=== PATIENT | female | born 1990 | race American Indian/Alaskan Native ===

== ENCOUNTER 2018-12-16 20:12 | Inpatient (IN) | payer MEDICAID ==
[2018-12-16] MEDS ORDERED: DOCUSATE SODIUM 100 MG CAP PO PRN (21:18)
[2018-12-16] MEDS ORDERED: ZOLPIDEM 10 MG TAB PO PRN (21:18)
[2018-12-16] MEDS ORDERED: DEXTROSE 50% IN WATER (25GM) 50 ML SYRINGE IV PRN (21:32)
--- NOTE | 2018-12-16 21:42 | History and Physical Report ---
History of Present Illness Date of examination: 12/16/18 Date of admission: 12/16/18 Chief complaint: My blood sugar is high History of present illness: Pt is a 28 year old who presents for inpatient management of uncontrolled diabetes. Pt is 34.5 weeks and is scheduled for a at 37 weeks, however, she may need to be delivered sooner than that due to risk to infant from diabetes. 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 Family/Genetic History: diabetes Social history: single - Obstetrical History Expected Date of Delivery: 01/23/19 Actual Gestation: 34 Week(s) 4 Day(s) : 2 Number of Living Children: 1 Medications and Allergies Allergies Allergy/AdvReac Type Severity Reaction Status Date / Time clindamycin Allergy Swelling Unverified 12/16/18 20:15 doxycycline Allergy Swelling Unverified 12/16/18 20:15 Penicillins AdvReac Swelling Unverified 12/16/18 20:15 Active Meds: Active Medications Betamethasone Acet/Betameth SodPhos (Celestone Soluspan) 12 mg IM Q24HR BRE Stop: 12/18/18 10:01 Dextrose (D50w (25gm) Syringe) 50 ml IV Q30MIN PRN PRN Reason: Hypoglycemia Lactated Ringer's (Lactated Ringers) 1,000 mls @ 75 mls/hr IV DIRECT BRE Insulin Human Regular (Humulin R) 0 units SUB-Q QHS BRE; Protocol Insulin Human Regular (Humulin R) 0 units SUB-Q AC BRE; Protocol Multivitamins/Iron/Calcium ( Vitamin) 1 each PO QDAY BRE Simethicone (Mylicon) 80 mg PO Q6H PRN PRN Reason: Gas pain Zolpidem Tartrate (Ambien) 10 mg PO ONCE PRN PRN Reason: Sleep Review of Systems All systems: negative Constitutional: fatigue Gastrointestinal: other ( movement) Rectal Exam: deferred - Vital Signs Vital signs: Vital Signs Pulse Pulse Ox 109 H 99 12/16/18 20:45 12/16/18 20:45 Temp Pulse Resp BP Pulse Ox 98.3 F 105 H 18 142/80 98 12/16/18 21:00 12/16/18 21:35 12/16/18 21:00 12/16/18 21:00 12/16/18 21:35 - Physical Exam Breasts: Cardiovascular: Regular rate, Normal S1, Normal S2 Lungs: Positive: Clear to auscultation, Normal air movement Abdomen: Positive: normal appearance, soft, normal bowel sounds. Negative: distention, tenderness Genitourinary (Female): Positive: normal external genitalia, normal perenium Vulva: both: normal Vagina: Positive: normal moisture. Negative: discharge Cervix: Negative: lesion, discharge Uterus: Positive: normal size, normal contour Adnexa: both: normal Anus/Rectum: Positive: normal perianal skin, heme negative. Negative: rectal mass, hemorrhoids Extremities: Deep Tendon Reflex Grade: Normal +2 - Obstetrical FHR: auscultation normal Results All other labs normal. Assessment and Plan Patient here for admission and inpatient management of uncontrolled diabetes management. Will add steroids for lung maturity. Consult Dr Hester
[2018-12-16] MEDS ORDERED: INSULIN REGULAR, HUMAN 100 UNITS/1 ML SUB-Q SCH (22:00)
[2018-12-16 22:22] LABS: Basophils # (Auto) 0.1 K/mm3 (0.0-0.1); Basophils % (Auto) 0.7 % (0.0-1.8); Eosinophils # (Auto) 0.1 K/mm3 (0.0-0.4); Hematocrit 36.1 % (30.3-42.9); Lymphocytes % (Auto) 24.5 % (13.4-35.0); Mean Corpuscular HGB Conc 33 % (30-34); Mean Corpuscular Volume 83 fl (79-97); Monocytes # (Auto) 0.6 K/mm3 (0.0-0.8); Monocytes % (Auto) 7.9 % (0.0-7.3); Platelet Count 396 K/mm3 (140-440); Red Blood Count 4.34 M/mm3 (3.65-5.03); Red Cell Distribution Width 14.3 % (13.2-15.2)
[2018-12-16] MEDS: BETAMET ACET/BETAMET NA PH 6 MG/ML INJ 5 ML MDV IM SCH (22:31)
[2018-12-16] MEDS: SIMETHICONE 80 MG CHEW TAB PO PRN (22:45)
[2018-12-16 22:47] LABS: BUN/Creatinine Ratio 13; Blood Urea Nitrogen 5 mg/dL (7-17); Calcium 9.1 mg/dL (8.4-10.2); Hemolysis Index 67
[2018-12-16] MEDS: ACETAMINOPHEN 325 MG TAB PO PRN (22:52)
[2018-12-16] MEDS ORDERED: SODIUM CHLORIDE 0.9% 1000 ML 1,000 ML IV SCH (23:00)
--- NOTE | 2018-12-16 23:28 | Ultrasound Report ---
ULTRASOUND OBSTETRIC INDICATION / CLINICAL INFORMATION: uncontrolled diabetes. Clinical Gestational Age (GA): 34/5 (weeks/days) TECHNIQUE: Transabdominal. COMPARISON: None available. FINDINGS: There is a single intrauterine . Biparietal Diameter = 8.4 cm = 33/5 (weeks/days) Head Circumference = 31.1 cm = 34/5 (weeks/days) Abdominal Circumference = 34.2 cm = 38/1 (weeks/days) Femur Length = 6.8 cm = 34/6 (weeks/days) Average Ultrasound Age (AUA) = 34/3 (weeks/days) Heart Rate: 156 beats per minute. Estimated Weight in grams (if calculated): 2937 Estimated Weight Growth Percentile (if calculated): 90th Position: cephalic. Cervix: closed. Length in cm (if measured): 5.2 Placenta: posterior and free of the os. No sonographic evidence for placental abruption. Amniotic Fluid Volume: increased Amniotic Fluid Index (ANYI) in cm (if calculated): 29.0. Maternal Adnexa: Not well visualized. IMPRESSION: 1. Single, living intrauterine with estimated sonographic age of 34/3 (weeks/days). 2. Increased amniotic fluid index of 29.0 cm. Signer Name: Bernabe Bridges MD Signed: 12/16/2018 11:24 PM Workstation Name: [id number]
[2018-12-17] MEDS: ACETAMINOPHEN 325 MG TAB PO PRN (05:15)
[2018-12-17] MEDS ORDERED: ONDANSETRON 4 MG/2 ML INJ IV PRN (06:47)
[2018-12-17] MEDS: PRENATAL VIT27-FE FUMARATE-FOLIC ACID VIT TAB PO SCH (09:07)
[2018-12-17] MEDS: INSULIN REGULAR, HUMAN 100 UNITS/1 ML SUB-Q SCH ×2 (09:08→11:52)
[2018-12-17] MEDS: diphenhydrAMINE 25 MG CAP PO PRN ×3 (09:10→23:49)
[2018-12-17] MEDS: LACTATED RINGERS 1,000 ML IV SCH (09:19)
[2018-12-17] MEDS: SIMETHICONE 80 MG CHEW TAB PO PRN (11:53)
[2018-12-17] MEDS ORDERED: INSULIN REGULAR, HUMAN 100 UNITS/1 ML SUB-Q ONE (16:54)
[2018-12-17] MEDS ORDERED: FAMOTIDINE 20 MG TAB ONE (17:45)
[2018-12-17] MEDS: FAMOTIDINE 20 MG TAB PO SCH (17:56)
--- NOTE | 2018-12-17 22:13 | Progress Note ---
Assessment and Plan HD 2 for this noncompliant diabetic patient here for inpatient management. Pt is soon to be 35 weeks and ok receive second steroid dose on today. Will await input from [facility] regarding timing of delivery Subjective - Subjective Date of service: 12/17/18 Interval history: Pt is a 28 year old who presents for inpatient management of uncontrolled diabetes. Pt is 34.5 weeks and is scheduled for a at 37 weeks, however, she may need to be delivered sooner than that due to risk to infant from diabetes. Pt continues to be noncompliant even in hospital and is requesting outside food and juice which is not part of the ADA diet Patient reports: movement normal Objective - Vital Signs Vital Signs: Vital Signs - 12hr 12/17/18 12/17/18 12/17/18 11:29 11:30 16:10 Temperature 98.4 F Pulse Rate 108 H 96 H 113 H Respiratory 20 Rate Blood Pressure 127/78 126/63 Blood Pressure 127/78 [Left] O2 Sat by Pulse 98 96 Oximetry 12/17/18 12/17/18 12/17/18 16:26 17:51 17:56 Temperature 98.5 F Pulse Rate 114 H 108 H 109 H Respiratory 20 Rate Blood Pressure Blood Pressure 126/63 [Left] O2 Sat by Pulse 98 99 99 Oximetry 12/17/18 12/17/18 18:01 19:46 Temperature Pulse Rate 111 H 109 H Respiratory Rate Blood Pressure 133/81 Blood Pressure [Left] O2 Sat by Pulse 99 Oximetry - Exam Breasts: deferred Uterus: Present: normal FHR: auscultation normal Uterine Contraction Pattern: Irregular - Labs Labs: Abnormal Labs 12/16/18 12/16/18 12/16/18 21:54 22:02 22:02 [place] % (Auto) 7.9 H Sodium Carbon Dioxide BUN Creatinine Glucose POC Glucose 349 H Hemoglobin A1c 12.5 H Ur Total Protein 24 Hr Urine Total Protein 12/16/18 12/17/18 12/17/18 22:02 03:15 06:51 [place] % (Auto) Sodium 132 L Carbon Dioxide 17 L BUN 5 L Creatinine 0.4 L Glucose 400 H POC Glucose 277 H 276 H Hemoglobin A1c Ur Total Protein 24 Hr Urine Total Protein 12/17/18 12/17/18 12/17/18 11:35 16:28 20:30 [place] % (Auto) Sodium Carbon Dioxide BUN Creatinine Glucose POC Glucose 210 H 301 H Hemoglobin A1c Ur Total Protein 24 Hr 260.00 H Urine Total Protein 20 H Laboratory Results - last 24 hr 12/16/18 12/16/18 12/16/18 22:00 22:02 22:02 WBC 8.2 RBC 4.34 Hgb 12.0 Hct 36.1 MCV 83 MCH 28 MCHC 33 RDW 14.3 Plt Count 396 Lymph % (Auto) 24.5 [place] % (Auto) 7.9 H Eos % (Auto) 1.0 Baso % (Auto) 0.7 Lymph # 2.0 [place] # 0.6 Eos # 0.1 Baso # 0.1 Seg Neutrophils % 65.9 Seg Neutrophils # 5.4 Sodium Potassium Chloride Carbon Dioxide Anion Gap BUN Creatinine Estimated GFR BUN/Creatinine Ratio Glucose POC Glucose Hemoglobin A1c 12.5 H Calcium Urine Total Volume Ur Total Protein 24 Hr Urine Total Protein Blood Type O POSITIVE Antibody Screen Negative 12/16/18 12/17/18 12/17/18 22:02 03:15 06:51 WBC RBC Hgb Hct MCV MCH MCHC RDW Plt Count Lymph % (Auto) [place] % (Auto) Eos % (Auto) Baso % (Auto) Lymph # [place] # Eos # Baso # Seg Neutrophils % Seg Neutrophils # Sodium 132 L Potassium 4.1 Chloride 100.2 Carbon Dioxide 17 L Anion Gap 19 BUN 5 L Creatinine 0.4 L Estimated GFR > 60 BUN/Creatinine Ratio 13 Glucose 400 H POC Glucose 277 H 276 H Hemoglobin A1c Calcium 9.1 Urine Total Volume Ur Total Protein 24 Hr Urine Total Protein Blood Type Antibody Screen 12/17/18 12/17/18 12/17/18 11:35 16:28 20:30 WBC RBC Hgb Hct MCV MCH MCHC RDW Plt Count Lymph % (Auto) [place] % (Auto) Eos % (Auto) Baso % (Auto) Lymph # [place] # Eos # Baso # Seg Neutrophils % Seg Neutrophils # Sodium Potassium Chloride Carbon Dioxide Anion Gap BUN Creatinine Estimated GFR BUN/Creatinine Ratio Glucose POC Glucose 210 H 301 H Hemoglobin A1c Calcium Urine Total Volume 1300 Ur Total Protein 24 Hr 260.00 H Urine Total Protein 20 H Blood Type Antibody Screen
[2018-12-17] MEDS: BETAMET ACET/BETAMET NA PH 6 MG/ML INJ 5 ML MDV IM SCH (22:51)
[2018-12-17] MEDS ORDERED: INSULIN GLARGINE 100 UNITS/ML SUB-Q SCH (23:45)
[2018-12-18] MEDS: INSULIN REGULAR, HUMAN 100 UNITS/1 ML SUB-Q SCH ×5 (00:24→22:19)
[2018-12-18 01:09] LABS: BUN/Creatinine Ratio 20; Blood Urea Nitrogen 10 mg/dL (7-17); Calcium 8.7 mg/dL (8.4-10.2); Hemolysis Index 15
[2018-12-18 01:10] LABS: Alanine Aminotransferase < 5 units/L (7-56)
[2018-12-18] MEDS: LACTATED RINGERS 1,000 ML IV SCH (01:42)
[2018-12-18 07:01] LABS: Amphetamine Screen,Urine PRESUMPTIVE NEGATIVE; Benzodiazepines Screen,Urine PRESUMPTIVE NEGATIVE; Cannabinoid Screen,Urine PRESUMPTIVE NEGATIVE; Cocaine Screen,Urine PRESUMPTIVE NEGATIVE; Methadone Screen,Urine PRESUMPTIVE NEGATIVE; Opiate Screen,Urine PRESUMPTIVE NEGATIVE
[2018-12-18] MEDS ORDERED: INSULIN REGULAR, HUMAN 100 UNITS/1 ML SUB-Q SCH (07:30)
[2018-12-18] MEDS ORDERED: INSULIN GLARGINE 100 UNITS/ML SUB-Q SCH ×2 (08:00→22:00)
[2018-12-18] MEDS: FAMOTIDINE 20 MG TAB PO SCH ×2 (08:00→22:00)
[2018-12-18] MEDS: PRENATAL VIT27-FE FUMARATE-FOLIC ACID VIT TAB PO SCH ×2 (10:00→12:16)
--- NOTE | 2018-12-18 12:13 | Ultrasound Report ---
ULTRASOUND BIOPHYSICAL PROFILE INDICATION: non compliant DM, well being. COMPARISON: None available. FINDINGS: heart rate is 136 beats per minute. breathing movement = 2 Gross body movement = 2 tone = 2 Qualitative amniotic fluid volume = 2 IMPRESSION: biophysical profile = 09/17 Signer Name: Jose L Brody Jr, MD Signed: 12/18/2018 12:09 PM Workstation Name: [id number]
[2018-12-18] MEDS: diphenhydrAMINE 25 MG CAP PO PRN ×2 (13:03→22:20)
--- NOTE | 2018-12-18 14:14 | Consultation ---
History of Present Illness Consult date: 12/18/18 History of present illness: HPI Pt is a 28 year old now 35 0/7 weeks sent in from OB's office due to uncontrolled DM and elevated BP's Denies LINTON's Scotoma or RUQ Pain - BP's 130/70-80's high 142/82 Patient followed by [facility] - Non compliant with Insulin and diet - Failed to bring in BS log's DM since age 7 States suboptimal and not taking insulin prior to preg due to Insurance issues States her HgA1c was at 17 and had decreased to 12 - Reviewed [facility] labs HgA1c on 05/26/18 at 14.7% HbA1c Oct 2018 at 12% [facility] reported her to be on Levimir 60 am and pm and Novolog 10 before each meal Uncertain if patient following recommendations - Has failed to bring in BS Log BS Elevated 349 given 10 units R then 277 per nurses BS still in 200's to 300 last 268 at 11:30 - I called in Insulin orders last pm and sliding scale but patient never started on AC Insulin of 14 units before BF, lunch, dinner -------- States she was admitted to [facility] for DKA and Abscess ? MRSA in november in ICU for "7 days" [facility] US 12/11/18 EFW at 2618g (5'12") 76% [facility] US 12/16/18 EFW at 2937g - 84% with Poly at 29 BPP 8/8 EFM 130's small accels Labs 24 Hour urine at 260 Plts at 390Creat at .4 AST/ALT at 9/5 Get HbA1c ?? 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 Family/Genetic History: diabetes - Obstetrical History : 2 Medications and Allergies Allergies Allergy/AdvReac Type Severity Reaction Status Date / Time clindamycin Allergy Swelling Verified 12/16/18 23:20 doxycycline Allergy Swelling Unverified 12/16/18 20:15 Penicillins AdvReac Swelling Verified 12/16/18 23:20 Home Medications Medication Instructions Recorded Confirmed Last Taken Type No Known Home Medications [No 12/17/18 12/17/18 Unknown History Reported Home Medications] Active Meds: Active Medications Acetaminophen (Tylenol) 650 mg PO Q4H PRN PRN Reason: Pain MILD(1-3)/Fever >100.5/LINTON Last Admin: 12/17/18 05:15 Dose: 650 mg Documented by: Diphenhydramine HCl (Benadryl) 25 mg PO QHS PRN PRN Reason: Sleep Last Admin: 12/18/18 13:03 Dose: 25 mg Documented by: Docusate Sodium (Colace) 100 mg PO Q12H PRN PRN Reason: Constipation Famotidine (Pepcid) 20 mg PO BID [facility] Last Admin: 12/18/18 08:00 Dose: 20 mg Documented by: Lactated Ringer's (Lactated Ringers) 1,000 mls @ 75 mls/hr IV DIRECT [facility] Last Admin: 12/18/18 01:42 Dose: 75 mls/hr Documented by: Sodium Chloride (Nacl 0.9% 1000 Ml) 1,000 mls @ 75 mls/hr IV DIRECT BRE Last Admin: 12/16/18 23:04 Dose: 75 mls/hr Documented by: Insulin Glargine (Lantus) 60 units SUB-Q QAMDIAB [facility] Last Admin: 12/18/18 08:12 Dose: 60 units Documented by: Insulin Glargine (Lantus) 60 units SUB-Q QHS [facility] Insulin Human Lispro (Humalog) 14 unit SUB-Q AC [facility] Insulin Human Regular (Humulin R) 0 units SUB-Q ACHS [facility]; Protocol Last Admin: 12/18/18 12:16 Dose: 16 units Documented by: Multivitamins/Iron/Calcium ( Vitamin) 1 each PO QDAY [facility] Last Admin: 12/17/18 09:07 Dose: 1 each Documented by: Ondansetron HCl (Zofran) 8 mg IV Q8H PRN PRN Reason: Nausea Last Admin: 12/17/18 09:11 Dose: 8 mg Documented by: Simethicone (Mylicon) 80 mg PO Q6H PRN PRN Reason: Gas pain Last Admin: 12/17/18 11:53 Dose: 80 mg Documented by: - Vital Signs Vital signs: Vital Signs Pulse Pulse Ox 109 H 99 12/16/18 20:45 12/16/18 20:45 Temp Pulse Resp BP Pulse Ox 98.1 F 97 H 18 127/76 99 12/18/18 11:27 12/18/18 11:26 12/18/18 11:27 12/18/18 11:26 12/17/18 18:01 Results Result Diagrams: 12/16/18 22:02 12/18/18 00:28 Abnormal lab results 12/17/18 12/17/18 12/17/18 Range/Units 16:28 20:30 23:03 POC ABG pCO2 (35-45) Sodium (137-145) mmol/L Carbon Dioxide (22-30) mmol/L Creatinine (0.7-1.2) mg/dL Glucose (65-100) mg/dL POC Glucose 301 H 362 H (70-105) ALT (7-56) units/L Albumin (3.9-5) g/dL Ur Total Protein 24 Hr 260.00 H (2-200) mg/dL Urine Total Protein 20 H (5-11.8) mg/dL 12/18/18 12/18/18 12/18/18 Range/Units 00:28 02:38 06:31 POC ABG pCO2 (35-45) Sodium 130 L (137-145) mmol/L Carbon Dioxide 14 L (22-30) mmol/L Creatinine 0.5 L (0.7-1.2) mg/dL Glucose 464 H (65-100) mg/dL POC Glucose 308 H 274 H (70-105) ALT < 5 L (7-56) units/L Albumin 3.0 L (3.9-5) g/dL Ur Total Protein 24 Hr (2-200) mg/dL Urine Total Protein (5-11.8) mg/dL 12/18/18 Range/Units 06:37 POC ABG pCO2 24.8 L (35-45) Sodium (137-145) mmol/L Carbon Dioxide (22-30) mmol/L Creatinine (0.7-1.2) mg/dL Glucose (65-100) mg/dL POC Glucose (70-105) ALT (7-56) units/L Albumin (3.9-5) g/dL Ur Total Protein 24 Hr (2-200) mg/dL Urine Total Protein (5-11.8) mg/dL All other labs normal. Assessment and Plan Impression: 1. [place] IUP at 35 0/7 weeks 2. Uncontrolled DM - Noncompliance 3. Prior C/S - 2008 "FTP and 12# baby per patient" 4. Obesity 5. History of DKA with this preg 6. H/O MRSA per patient Recommendations: 1. Sliding Scale Insulin Reg - See orders 140-160 - 4 units 141-180- 6 181-200- 8 201-220- 10 221-240- 12 241-260- 14 161-280- 16 281-300- 18 301-320- 20 2. Novolog 24units AC (before breakfast, lunch dinner) 3. BPP Twice per week while in house 4. EFM q shift 5. Steroids in progress 6. Discussed with patient and Dr. Hartman and patient at high risk for demise, DKA again due to noncompliance and uncontrolled DM - Would keep in house and consider repeat C/S at 36 to 37 weeks 7. Accuchecks fastings and 2 Hour PP's 8. NICU consult 9. Seq leg compressors 10. 0 ADA diet
[2018-12-18] MEDS ORDERED: INSULIN LISPRO 100 UNIT/ML SUB-Q SCH (16:30)
[2018-12-18] MEDS ORDERED: BICITRA ORAL LIQD 30ML PO ONE (17:40)
[2018-12-19] MEDS: LACTATED RINGERS 1,000 ML IV SCH ×2 (03:11→07:49)
[2018-12-19] MEDS: INSULIN REGULAR, HUMAN 100 UNITS/1 ML SUB-Q SCH ×4 (08:04→22:37)
[2018-12-19] MEDS: INSULIN LISPRO 100 UNIT/ML SUB-Q SCH ×3 (08:06→16:56)
[2018-12-19] MEDS: PRENATAL VIT27-FE FUMARATE-FOLIC ACID VIT TAB PO SCH (10:20)
--- NOTE | 2018-12-19 10:28 | Progress Note ---
Assessment and Plan A: 28 yo at 35.0 weeks EGA Uncontrolled diabetes mellitus P: Per MFM, BPP twice weekly, EFM qshift, sliding scale insulin, plan for delivery at 36-37 weeks Subjective - Subjective Date of service: 12/19/18 Principal diagnosis: Elevated blood glucose Interval history: HD4 for inpatient management of uncontrolled diabetes at 35 weeks EGA. S/p MFM consult and BMZ x1. Patient reports: movement normal, other (denies LINTON, scotomata, RUQ pain), no new complaints, no loss of fluid, no vaginal bleeding, no contractions Objective - Vital Signs Vital Signs: Vital Signs - 12hr 12/19/18 12/19/18 12/19/18 06:11 08:07 08:11 Temperature 98 F Pulse Rate 94 H 90 90 Respiratory 18 Rate Blood Pressure 116/63 139/83 Blood Pressure 139/83 [Left] - Exam Lungs: Normal air movement Abdomen: Present: soft Uterus: Present: normal - Labs Labs: Abnormal Labs 12/16/18 12/16/18 12/16/18 21:54 22:02 22:02 [place] % (Auto) 7.9 H POC ABG pCO2 Sodium Carbon Dioxide BUN Creatinine Glucose POC Glucose 349 H Hemoglobin A1c 12.5 H ALT Albumin Ur Total Protein 24 Hr Urine Total Protein 12/16/18 12/17/18 12/17/18 22:02 03:15 06:51 [place] % (Auto) POC ABG pCO2 Sodium 132 L Carbon Dioxide 17 L BUN 5 L Creatinine 0.4 L Glucose 400 H POC Glucose 277 H 276 H Hemoglobin A1c ALT Albumin Ur Total Protein 24 Hr Urine Total Protein 12/17/18 12/17/18 12/17/18 11:35 16:28 20:30 [place] % (Auto) POC ABG pCO2 Sodium Carbon Dioxide BUN Creatinine Glucose POC Glucose 210 H 301 H Hemoglobin A1c ALT Albumin Ur Total Protein 24 Hr 260.00 H Urine Total Protein 20 H 12/17/18 12/18/18 12/18/18 23:03 00:28 02:38 [place] % (Auto) POC ABG pCO2 Sodium 130 L Carbon Dioxide 14 L BUN Creatinine 0.5 L Glucose 464 H POC Glucose 362 H 308 H Hemoglobin A1c ALT < 5 L Albumin 3.0 L Ur Total Protein 24 Hr Urine Total Protein 12/18/18 12/18/18 12/18/18 06:31 06:37 08:19 [place] % (Auto) POC ABG pCO2 24.8 L Sodium Carbon Dioxide BUN Creatinine Glucose POC Glucose 274 H 276 H Hemoglobin A1c ALT Albumin Ur Total Protein 24 Hr Urine Total Protein 12/18/18 12/18/18 12/18/18 11:40 17:21 22:14 [place] % (Auto) POC ABG pCO2 Sodium Carbon Dioxide BUN Creatinine Glucose POC Glucose 268 H 227 H 293 H Hemoglobin A1c ALT Albumin Ur Total Protein 24 Hr Urine Total Protein 12/19/18 06:37 [place] % (Auto) POC ABG pCO2 Sodium Carbon Dioxide BUN Creatinine Glucose POC Glucose 219 H Hemoglobin A1c ALT Albumin Ur Total Protein 24 Hr Urine Total Protein Laboratory Results - last 24 hr 12/18/18 12/18/18 12/18/18 08:19 11:40 17:21 POC Glucose 276 H 268 H 227 H 12/18/18 12/19/18 22:14 06:37 POC Glucose 293 H 219 H
[2018-12-19] MEDS: FAMOTIDINE 20 MG TAB PO SCH (20:11)
[2018-12-19] MEDS: diphenhydrAMINE 25 MG CAP PO PRN (22:11)
[2018-12-19] MEDS: INSULIN GLARGINE 100 UNITS/ML SUB-Q SCH (22:36)
[2018-12-20] MEDS: INSULIN REGULAR, HUMAN 100 UNITS/1 ML SUB-Q SCH (07:22)
[2018-12-20] MEDS: INSULIN LISPRO 100 UNIT/ML SUB-Q SCH ×3 (07:22→17:05)
[2018-12-20] MEDS: INSULIN GLARGINE 100 UNITS/ML SUB-Q SCH ×2 (08:34→21:58)
--- NOTE | 2018-12-20 09:26 | Progress Note ---
Assessment and Plan A: 28 yo at 35.1 weeks EGA Uncontrolled diabetes mellitus P: Continue current care Per MFM, BPP twice weekly, EFM qshift, sliding scale insulin, plan for delivery at 36-37 weeks Subjective - Subjective Date of service: 12/20/18 Principal diagnosis: Elevated blood glucose Interval history: HD5 for inpatient management of uncontrolled diabetes at 35.1 weeks EGA. S/p MFM consult and BMZ x1. BG has been stabilizing, Insulin to be readjusted. Patient reports: movement normal, other (denies LINTON, scotomata, RUQ pain), no new complaints, no loss of fluid, no vaginal bleeding, no contractions Objective - Vital Signs Vital Signs: Vital Signs - 12hr 12/20/18 12/20/18 12/20/18 00:10 00:13 03:53 Temperature 98.2 F Pulse Rate 94 H 88 Respiratory 16 Rate Blood Pressure 116/70 117/60 Blood Pressure [Left] 12/20/18 12/20/18 12/20/18 03:57 08:26 08:29 Temperature 98.4 F 98.9 F Pulse Rate 95 H 95 H Respiratory 16 18 Rate Blood Pressure 124/73 Blood Pressure 124/73 [Left] - Exam Lungs: Normal air movement FHR: category 1 - Labs Labs: Abnormal Labs 12/16/18 12/16/18 12/16/18 21:54 22:02 22:02 [place] % (Auto) 7.9 H POC ABG pCO2 Sodium Carbon Dioxide BUN Creatinine Glucose POC Glucose 349 H Hemoglobin A1c 12.5 H ALT Albumin Ur Total Protein 24 Hr Urine Total Protein 12/16/18 12/17/18 12/17/18 22:02 03:15 06:51 [place] % (Auto) POC ABG pCO2 Sodium 132 L Carbon Dioxide 17 L BUN 5 L Creatinine 0.4 L Glucose 400 H POC Glucose 277 H 276 H Hemoglobin A1c ALT Albumin Ur Total Protein 24 Hr Urine Total Protein 12/17/18 12/17/18 12/17/18 11:35 16:28 20:30 [place] % (Auto) POC ABG pCO2 Sodium Carbon Dioxide BUN Creatinine Glucose POC Glucose 210 H 301 H Hemoglobin A1c ALT Albumin Ur Total Protein 24 Hr 260.00 H Urine Total Protein 20 H 12/17/18 12/18/18 12/18/18 23:03 00:28 02:38 [place] % (Auto) POC ABG pCO2 Sodium 130 L Carbon Dioxide 14 L BUN Creatinine 0.5 L Glucose 464 H POC Glucose 362 H 308 H Hemoglobin A1c ALT < 5 L Albumin 3.0 L Ur Total Protein 24 Hr Urine Total Protein 12/18/18 12/18/18 12/18/18 06:31 06:37 08:19 [place] % (Auto) POC ABG pCO2 24.8 L Sodium Carbon Dioxide BUN Creatinine Glucose POC Glucose 274 H 276 H Hemoglobin A1c ALT Albumin Ur Total Protein 24 Hr Urine Total Protein 12/18/18 12/18/18 12/18/18 11:40 17:21 22:14 [place] % (Auto) POC ABG pCO2 Sodium Carbon Dioxide BUN Creatinine Glucose POC Glucose 268 H 227 H 293 H Hemoglobin A1c ALT Albumin Ur Total Protein 24 Hr Urine Total Protein 12/19/18 12/19/18 12/19/18 06:37 11:28 14:34 [place] % (Auto) POC ABG pCO2 Sodium Carbon Dioxide BUN Creatinine Glucose POC Glucose 219 H 164 H 261 H Hemoglobin A1c ALT Albumin Ur Total Protein 24 Hr Urine Total Protein 12/19/18 22:02 [place] % (Auto) POC ABG pCO2 Sodium Carbon Dioxide BUN Creatinine Glucose POC Glucose 151 H Hemoglobin A1c ALT Albumin Ur Total Protein 24 Hr Urine Total Protein Laboratory Results - last 24 hr 12/19/18 12/19/18 12/19/18 11:28 14:34 22:02 POC Glucose 164 H 261 H 151 H 12/20/18 07:29 POC Glucose 97
[2018-12-20] MEDS: FAMOTIDINE 20 MG TAB PO SCH (14:48)
[2018-12-20] MEDS: diphenhydrAMINE 25 MG CAP PO PRN (21:57)
[2018-12-21] MEDS ORDERED: ONDANSETRON 4 MG/2 ML INJ ONE (08:00)
[2018-12-21] MEDS ORDERED: DEXMEDETOMIDINE 200 MCG/2 ML VIAL IV ONE (08:00)
[2018-12-21] MEDS ORDERED: PHENYLEPHRINE 10 MG/1 ML INJ SDV ONE (08:00)
[2018-12-21] MEDS ORDERED: KETOROLAC 30 MG/1 ML INJ ONE (08:00)
[2018-12-21] MEDS ORDERED: diphenhydrAMINE 50 MG/ML VIAL ONE (08:00)
[2018-12-21] MEDS ORDERED: HYDROmorphone 1 MG/1 ML INJ ONE (08:29)
[2018-12-21] MEDS: INSULIN LISPRO 100 UNIT/ML SUB-Q SCH ×3 (09:05→17:45)
[2018-12-21] MEDS: INSULIN GLARGINE 100 UNITS/ML SUB-Q SCH ×2 (09:05→22:11)
[2018-12-21] MEDS ORDERED: diphenhydrAMINE 25 MG/10 ML ORAL LIQUID PO ONE (09:24)
[2018-12-21] MEDS: FAMOTIDINE 20 MG TAB PO SCH ×2 (09:46→22:10)
[2018-12-21] MEDS: PRENATAL VIT27-FE FUMARATE-FOLIC ACID VIT TAB PO SCH (09:47)
[2018-12-21] MEDS: INSULIN REGULAR, HUMAN 100 UNITS/1 ML SUB-Q SCH ×4 (09:49→22:10)
[2018-12-21] MEDS ORDERED: diphenhydrAMINE 25 MG CAP PO ONE (10:00)
--- NOTE | 2018-12-21 13:34 | Consultation ---
History of Present Illness Consult date: 12/21/18 Requesting physician: STONEY HUSSEIN History of present illness: APA/MFM Pt is a 28 year old now 35 3/7 weeks sent in from OB's office due to uncontrolled DM and elevated BP's Denies LINTON's Scotoma or RUQ Pain - Initial BP's 130/70-80's high 142/82 12/21/18 BP 112/67 Denies LINTON' Scotoma or RUQ Pain Patient followed by [facility] - Non compliant with Insulin and diet - Failed to bring in BS log's DM since age 7 States suboptimal and not taking insulin prior to preg due to Insurance issues States her HgA1c was at 17 and had decreased to 12 Reviewed [facility] labs HgA1c on 05/26/18 at 14.7% HbA1c Oct 2018 at 12% EFM Categ 1 per nurse baseline 140's BPP 8/8 on 12/18/18 Recent BS much improved fasting 97, 2 hour PPB at 91 Insulin has been adjusted over weekend Currenly on Lantus 70 am and q hs - to get 16 R before each meal but none at lunch Impression: 1. [place] IUP at 35 5/7 weeks 2. Uncontrolled DM - Noncompliance - BS Improved 3. Prior C/S - 2008 "FTP and 12# baby per patient" 4. Obesity 5. History of DKA with this preg 6. H/O MRSA per patient Recommendations: 1. Sliding Scale Insulin Reg - See orders 140-160 - 4 units 141-180- 6 181-200- 8 201-220- 10 221-240- 12 241-260- 14 161-280- 16 281-300- 18 301-320- 20 2. Novolog 16 units AC (before breakfast, lunch dinner) held before lunch today at 2 PPB at 91 3. BPP Twice per week while in house 4. EFM q shift 5. Steroids Done 6. Discussed with patient and Dr. Hussein and patient at high risk for demise, DKA again due to noncompliance and uncontrolled DM - Would keep in house and consider repeat C/S at 36 to 37 weeks 7. Accuchecks fastings and 2 Hour PP's 8. NICU consult 9. Seq leg compressors 10. 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 Family/Genetic History: diabetes - Obstetrical History : 2 Medications and Allergies Allergies Allergy/AdvReac Type Severity Reaction Status Date / Time clindamycin Allergy Swelling Verified 12/18/18 20:49 doxycycline Allergy Swelling Verified 12/18/18 20:49 Penicillins AdvReac Swelling Verified 12/18/18 20:49 Home Medications Medication Instructions Recorded Confirmed Last Taken Type No Known Home Medications [No 12/17/18 12/17/18 Unknown History Reported Home Medications] Active Meds: Active Medications Acetaminophen (Tylenol) 650 mg PO Q4H PRN PRN Reason: Pain MILD(1-3)/Fever >100.5/LINTON Last Admin: 12/17/18 05:15 Dose: 650 mg Documented by: Diphenhydramine HCl (Benadryl) 25 mg PO QHS PRN PRN Reason: Sleep Last Admin: 12/20/18 21:57 Dose: 25 mg Documented by: Docusate Sodium (Colace) 100 mg PO Q12H PRN PRN Reason: Constipation Famotidine (Pepcid) 20 mg PO BID BRE Last Admin: 12/20/18 14:48 Dose: 20 mg Documented by: Lactated Ringer's (Lactated Ringers) 1,000 mls @ 75 mls/hr IV DIRECT BRE Last Admin: 12/18/18 01:42 Dose: 75 mls/hr Documented by: Sodium Chloride (Nacl 0.9% 1000 Ml) 1,000 mls @ 75 mls/hr IV DIRECT BER Last Admin: 12/16/18 23:04 Dose: 75 mls/hr Documented by: Insulin Glargine (Lantus) 70 units SUB-Q QAMDIAB BRE Last Admin: 12/21/18 09:05 Dose: 70 units Documented by: Insulin Glargine (Lantus) 70 units SUB-Q QHS BRE Last Admin: 12/20/18 21:58 Dose: 70 units Documented by: Insulin Human Lispro (Humalog) 16 unit SUB-Q AC [facility] Last Admin: 12/21/18 13:22 Dose: Not Given Documented by: Insulin Human Regular (Humulin R) 0 units SUB-Q ACHS [facility]; Protocol Last Admin: 12/21/18 13:18 Dose: Not Given Documented by: Multivitamins/Iron/Calcium ( Vitamin) 1 each PO QDAY [facility] Last Admin: 12/19/18 10:20 Dose: Not Given Documented by: Ondansetron HCl (Zofran) 8 mg IV Q8H PRN PRN Reason: Nausea Last Admin: 12/17/18 09:11 Dose: 8 mg Documented by: Simethicone (Mylicon) 80 mg PO Q6H PRN PRN Reason: Gas pain Last Admin: 12/17/18 11:53 Dose: 80 mg Documented by: - Vital Signs Vital signs: Vital Signs Pulse Pulse Ox 109 H 99 12/16/18 20:45 12/16/18 20:45 Temp Pulse Resp BP Pulse Ox 98.5 F 93 H 16 112/67 98 12/21/18 11:25 12/21/18 11:25 12/21/18 11:25 12/21/18 11:25 12/20/18 20:45 Results Result Diagrams: 12/16/18 22:02 12/18/18 00:28 Abnormal lab results 12/20/18 12/20/18 Range/Units 14:33 20:47 POC Glucose 185 H 149 H (70-105) All other labs normal.
--- NOTE | 2018-12-21 17:10 | Ultrasound Report ---
ULTRASOUND BIOPHYSICAL PROFILE INDICATION / CLINICAL INFORMATION: Uncontrolled diabetes. well-being. COMPARISON: 12/18/2018. FINDINGS: BREATHING MOVEMENT = 2 GROSS BODY MOVEMENT = 2 TONE = 2 QUALITATIVE AMNIOTIC FLUID VOLUME = 2 TOTAL BIOPHYSICAL SCORE = 09/17 DEEPEST VERTICAL POCKET AMNIOTIC FLUID (cm) = 9.3 PRESENTATION: Cephalic. HEART RATE (beats per minute): 153 IMPRESSION: biophysical profile = 09/17 Signer Name: Mando Sweet MD Signed: 12/21/2018 5:06 PM Workstation Name: [id number]
[2018-12-21] MEDS: diphenhydrAMINE 25 MG CAP PO PRN (22:10)
--- NOTE | 2018-12-21 22:13 | Progress Note ---
Assessment and Plan iup at 35.3 with type 1 dm. now in moderate control. Will plan for delivery this week. Consents signed and placed on chart Subjective - Subjective Date of service: 12/21/18 Principal diagnosis: Elevated blood glucose Interval history: Pt is a 28 year old who presents for inpatient management of uncontrolled diabetes. Pt is 35.2 weeks. Patient has had some good improvement over the weekend with her blood sugar. Will plan for delivery later this week. Patient reports: movement normal, other (denies LINTON, scotomata, RUQ pain), no new complaints, no loss of fluid, no vaginal bleeding, no contractions Objective - Vital Signs Vital Signs: Vital Signs - 12hr 12/21/18 12/21/18 12/21/18 11:22 11:25 16:17 Temperature 98.5 F Pulse Rate 93 H 93 H 91 H Respiratory 16 Rate Blood Pressure 112/67 131/83 Blood Pressure 112/67 [Left] O2 Sat by Pulse Oximetry 12/21/18 12/21/18 12/21/18 16:32 20:13 20:14 Temperature 99.2 F 98.9 F Pulse Rate 91 H 93 H Respiratory 18 Rate Blood Pressure 127/76 Blood Pressure 131/83 [Left] O2 Sat by Pulse 100 Oximetry - Exam Breasts: deferred Cardiovascular: Regular rate, Normal S1, Normal S2 Abdomen: Present: normal appearance, soft, normal bowel sounds FHR: auscultation normal - Labs Labs: Abnormal Labs 12/16/18 12/16/18 12/16/18 21:54 22:02 22:02 [place] % (Auto) 7.9 H POC ABG pCO2 Sodium Carbon Dioxide BUN Creatinine Glucose POC Glucose 349 H Hemoglobin A1c 12.5 H ALT Albumin Ur Total Protein 24 Hr Urine Total Protein 12/16/18 12/17/18 12/17/18 22:02 03:15 06:51 [place] % (Auto) POC ABG pCO2 Sodium 132 L Carbon Dioxide 17 L BUN 5 L Creatinine 0.4 L Glucose 400 H POC Glucose 277 H 276 H Hemoglobin A1c ALT Albumin Ur Total Protein 24 Hr Urine Total Protein 12/17/18 12/17/18 12/17/18 11:35 16:28 20:30 [place] % (Auto) POC ABG pCO2 Sodium Carbon Dioxide BUN Creatinine Glucose POC Glucose 210 H 301 H Hemoglobin A1c ALT Albumin Ur Total Protein 24 Hr 260.00 H Urine Total Protein 20 H 12/17/18 12/18/18 12/18/18 23:03 00:28 02:38 [place] % (Auto) POC ABG pCO2 Sodium 130 L Carbon Dioxide 14 L BUN Creatinine 0.5 L Glucose 464 H POC Glucose 362 H 308 H Hemoglobin A1c ALT < 5 L Albumin 3.0 L Ur Total Protein 24 Hr Urine Total Protein 12/18/18 12/18/18 12/18/18 06:31 06:37 08:19 [place] % (Auto) POC ABG pCO2 24.8 L Sodium Carbon Dioxide BUN Creatinine Glucose POC Glucose 274 H 276 H Hemoglobin A1c ALT Albumin Ur Total Protein 24 Hr Urine Total Protein 12/18/18 12/18/18 12/18/18 11:40 17:21 22:14 [place] % (Auto) POC ABG pCO2 Sodium Carbon Dioxide BUN Creatinine Glucose POC Glucose 268 H 227 H 293 H Hemoglobin A1c ALT Albumin Ur Total Protein 24 Hr Urine Total Protein 12/19/18 12/19/18 12/19/18 06:37 11:28 14:34 [place] % (Auto) POC ABG pCO2 Sodium Carbon Dioxide BUN Creatinine Glucose POC Glucose 219 H 164 H 261 H Hemoglobin A1c ALT Albumin Ur Total Protein 24 Hr Urine Total Protein 12/19/18 12/20/18 12/20/18 22:02 10:16 14:33 [place] % (Auto) POC ABG pCO2 Sodium Carbon Dioxide BUN Creatinine Glucose POC Glucose 151 H 199 H 185 H Hemoglobin A1c ALT Albumin Ur Total Protein 24 Hr Urine Total Protein 12/20/18 12/21/18 12/21/18 20:47 15:16 16:37 [place] % (Auto) POC ABG pCO2 Sodium Carbon Dioxide BUN Creatinine Glucose POC Glucose 149 H 192 H 135 H Hemoglobin A1c ALT Albumin Ur Total Protein 24 Hr Urine Total Protein 12/21/18 22:01 [place] % (Auto) POC ABG pCO2 Sodium Carbon Dioxide BUN Creatinine Glucose POC Glucose 163 H Hemoglobin A1c ALT Albumin Ur Total Protein 24 Hr Urine Total Protein Laboratory Results - last 24 hr 12/21/18 12/21/18 12/21/18 08:21 11:30 15:16 POC Glucose 99 91 192 H 12/21/18 12/21/18 16:37 22:01 POC Glucose 135 H 163 H
[2018-12-22] MEDS: FAMOTIDINE 20 MG TAB PO SCH ×4 (08:51→22:59)
[2018-12-22] MEDS: PRENATAL VIT27-FE FUMARATE-FOLIC ACID VIT TAB PO SCH ×2 (08:51→10:17)
[2018-12-22] MEDS: INSULIN LISPRO 100 UNIT/ML SUB-Q SCH ×3 (08:51→17:00)
[2018-12-22] MEDS: INSULIN REGULAR, HUMAN 100 UNITS/1 ML SUB-Q SCH ×3 (11:09→18:51)
[2018-12-22] MEDS: INSULIN GLARGINE 100 UNITS/ML SUB-Q SCH ×3 (11:11→22:59)
--- NOTE | 2018-12-22 13:19 | Progress Note ---
Assessment and Plan Impression: 1. [place] IUP at 35 4/7 weeks 2. Uncontrolled DM - Noncompliance - BS Improved 3. Prior C/S - 2008 "FTP and 12# baby per patient" 4. Obesity 5. History of DKA with this preg 6. H/O MRSA per patient Continue Recommendations as previously ordered: 1. Sliding Scale Insulin Reg - See orders 140-160 - 4 units 141-180- 6 181-200- 8 201-220- 10 221-240- 12 241-260- 14 161-280- 16 281-300- 18 301-320- 20 2. BPP Twice per week while in house 3. EFM q shift 4. Steroids Done 6. Consider repeat C/S at 36 to 37 weeks 7. Accuchecks fastings and 2 Hour PP's 8. NICU consult 9. Seq leg compressors 10. 0 ADA diet Please contact our completions manager physician for any questions or concerns. Thank You. Subjective - Subjective Date of service: 12/22/18 Principal diagnosis: Elevated blood glucose Interval history: Patient is 35 4/7 weeks, MABEL 01/22/19. patient has been noncompliant with diabetic recommendations. Blood glucose with suboptimal control over past 24 hours ranging 91-192. Patient reports: movement normal, other (denies LINTON, scotomata, RUQ pain), no new complaints, no loss of fluid, no vaginal bleeding, no contractions Objective - Vital Signs Vital Signs: Vital Signs - 12hr 12/22/18 12/22/18 12/22/18 04:08 07:36 07:40 Temperature 98.3 F 98.0 F Pulse Rate 85 87 87 Respiratory 16 Rate Blood Pressure 132/81 Blood Pressure 120/63 [Left] O2 Sat by Pulse 98 100 Oximetry 12/22/18 12/22/18 07:41 13:09 Temperature Pulse Rate 85 88 Respiratory Rate Blood Pressure 120/63 128/81 Blood Pressure [Left] O2 Sat by Pulse Oximetry - Exam Cardiovascular: Regular rate Lungs: Normal air movement Abdomen: Present: other (gravid) - Labs Labs: Abnormal Labs 12/16/18 12/16/18 12/16/18 21:54 22:02 22:02 [place] % (Auto) 7.9 H POC ABG pCO2 Sodium Carbon Dioxide BUN Creatinine Glucose POC Glucose 349 H Hemoglobin A1c 12.5 H ALT Albumin Ur Total Protein 24 Hr Urine Total Protein 12/16/18 12/17/18 12/17/18 22:02 03:15 06:51 [place] % (Auto) POC ABG pCO2 Sodium 132 L Carbon Dioxide 17 L BUN 5 L Creatinine 0.4 L Glucose 400 H POC Glucose 277 H 276 H Hemoglobin A1c ALT Albumin Ur Total Protein 24 Hr Urine Total Protein 12/17/18 12/17/18 12/17/18 11:35 16:28 20:30 [place] % (Auto) POC ABG pCO2 Sodium Carbon Dioxide BUN Creatinine Glucose POC Glucose 210 H 301 H Hemoglobin A1c ALT Albumin Ur Total Protein 24 Hr 260.00 H Urine Total Protein 20 H 12/17/18 12/18/18 12/18/18 23:03 00:28 02:38 [place] % (Auto) POC ABG pCO2 Sodium 130 L Carbon Dioxide 14 L BUN Creatinine 0.5 L Glucose 464 H POC Glucose 362 H 308 H Hemoglobin A1c ALT < 5 L Albumin 3.0 L Ur Total Protein 24 Hr Urine Total Protein 12/18/18 12/18/18 12/18/18 06:31 06:37 08:19 [place] % (Auto) POC ABG pCO2 24.8 L Sodium Carbon Dioxide BUN Creatinine Glucose POC Glucose 274 H 276 H Hemoglobin A1c ALT Albumin Ur Total Protein 24 Hr Urine Total Protein 12/18/18 12/18/18 12/18/18 11:40 17:21 22:14 [place] % (Auto) POC ABG pCO2 Sodium Carbon Dioxide BUN Creatinine Glucose POC Glucose 268 H 227 H 293 H Hemoglobin A1c ALT Albumin Ur Total Protein 24 Hr Urine Total Protein 12/19/18 12/19/18 12/19/18 06:37 11:28 14:34 [place] % (Auto) POC ABG pCO2 Sodium Carbon Dioxide BUN Creatinine Glucose POC Glucose 219 H 164 H 261 H Hemoglobin A1c ALT Albumin Ur Total Protein 24 Hr Urine Total Protein 12/19/18 12/20/18 12/20/18 22:02 10:16 14:33 [place] % (Auto) POC ABG pCO2 Sodium Carbon Dioxide BUN Creatinine Glucose POC Glucose 151 H 199 H 185 H Hemoglobin A1c ALT Albumin Ur Total Protein 24 Hr Urine Total Protein 12/20/18 12/21/18 12/21/18 20:47 15:16 16:37 [place] % (Auto) POC ABG pCO2 Sodium Carbon Dioxide BUN Creatinine Glucose POC Glucose 149 H 192 H 135 H Hemoglobin A1c ALT Albumin Ur Total Protein 24 Hr Urine Total Protein 12/21/18 12/22/18 12/22/18 22:01 08:57 10:40 [place] % (Auto) POC ABG pCO2 Sodium Carbon Dioxide BUN Creatinine Glucose POC Glucose 163 H 60 L 146 H Hemoglobin A1c ALT Albumin Ur Total Protein 24 Hr Urine Total Protein Laboratory Results - last 24 hr 12/21/18 12/21/18 12/21/18 15:16 16:37 22:01 POC Glucose 192 H 135 H 163 H 12/22/18 12/22/18 08:57 10:40 POC Glucose 60 L 146 H
[2018-12-22] MEDS: LACTATED RINGERS 1,000 ML IV SCH (20:40)
[2018-12-22 21:27] LABS: Red Blood Count 4.04 M/mm3 (3.65-5.03)
[2018-12-22 21:28] LABS: Basophils % (Auto) 0.3 % (0.0-1.8); Eosinophils # (Auto) 0.1 K/mm3 (0.0-0.4); Eosinophils % (Auto) 0.9 % (0.0-4.3); Hematocrit 33.4 % (30.3-42.9); Hemoglobin 11.2 gm/dl (10.1-14.3); Lymphocytes # (Auto) 2.6 K/mm3 (1.2-5.4); Mean Corpuscular HGB Conc 34 % (30-34); Mean Corpuscular Volume 83 fl (79-97); Monocytes # (Auto) 0.8 K/mm3 (0.0-0.8); Platelet Count 424 K/mm3 (140-440); Red Cell Distribution Width 14.4 % (13.2-15.2)
[2018-12-22] MEDS: diphenhydrAMINE 25 MG CAP PO PRN (22:59)
[2018-12-23] MEDS ORDERED: DEXMEDETOMIDINE 200 MCG/2 ML VIAL IV ONE (06:37)
[2018-12-23] MEDS ORDERED: BICITRA ORAL LIQD 30ML PO ONE (06:44)
[2018-12-23] MEDS ORDERED: FAMOTIDINE 20 MG/2 ML INJ IV ONE (06:44)
[2018-12-23] MEDS: LACTATED RINGERS 1,000 ML IV SCH (06:52)
[2018-12-23] MEDS ORDERED: OXYTOCIN 20 UNIT/1000ML DRIP 40,000 MILLIUNITS/2,000 ML BAG IV ONE (06:54)
[2018-12-23] MEDS ORDERED: METOCLOPRAMIDE 10 MG/2 ML INJ IV NR ×2 (07:00→08:30)
--- NOTE | 2018-12-23 07:29 | Anesthesia Consultation ---
Anesthesia Consult and Med Hx Date of service: 12/23/18 - Airway Anesthetic Teeth Evaluation: Poor, Chipped ROM Head & Neck: Adequate Mental/Hyoid Distance: Adequate Mallampati Class: Class III Intubation Access Assessment: Probably Good - Pulmonary Exam CTA: Yes - Cardiac Exam Cardiac Exam: RRR - Pre-Operative Health Status ASA Pre-Surgery Classification: ASA3 Proposed Anesthetic Plan: Spinal - Pre-Anesthesia Comment Pre-Anesthesia Comments: PSH: C/SECTION EPIDURAL, MULTIPLE I&D'S OF BOIL/ABSCESS. NO ANESTHESIA COMPLICATIONS. ALL TEETH ARE BROKEN AND IN VERY POOR CONDITION. - Pulmonary Hx Smoking: No Hx Asthma: Yes (last attack "some years") Hx Respiratory Symptoms: No SOB: No COPD: No Home Oxygen Therapy: No Hx Pneumonia: No Hx Sleep Apnea: No - Cardiovascular System Hx Hypertension: No Hx Coronary Artery Disease: No Hx Heart Attack/AMI: No Hx Angina: No Hx Percutaneous Transluminal Coronary Angioplasty (PTCA): No Hx Cardia Arrhythmia: No Hx Pacemaker: No Hx Internal Defibrillator: No Hx Valvular Heart Disease: No Hx Heart Murmur: No Hx Peripheral Vascular Disease: No - Central Nervous System Hx Neuromuscular Disorder: Yes (diabetic neuropathy in bilateal hands and feet) Hx Seizures: No CVA: No Hx Back Pain: No Hx Psychiatric Problems: No - Gastrointestinal Hx Ulcer: No Hx Gastroesophageal Reflux Disease: Yes - Endocrine Hx Renal Disease: No Hx End Stage Renal Disease: No Hx Cirrhosis: No Hx Liver Disease: No Hx Insulin Dependent Diabetes: Yes (admitted 12/16/18 for treatmant of uncontrolled IDDM) Hx Non-Insulin Dependent Diabetes: No Hx Thyroid Disease: No Hx Hypothyroidism: No Hx Hyperthyroidism: No - Hematic Hx Anemia: No Hx Sickle Cell Disease: No - Other Systems Hx Alcohol Use: No Hx Substance Use: No Hx Cancer: No Hx Obesity: Yes (BMI 36)
[2018-12-23] MEDS ORDERED: ONDANSETRON 4 MG/2 ML INJ IV PRN (07:30)
[2018-12-23] MEDS ORDERED: HYDROmorphone 1 MG/1 ML INJ IV PRN (07:30)
--- NOTE | 2018-12-23 07:35 | Anesthesia Day of Surgery ---
Anesthesia Day of Surgery - Day of Surgery Patient Examined: Yes Patient H&P Reviewed: Yes Patient is NPO: Yes Beta Blockers: No Cardiac Clearance: No Pulmonary Clearance: No Jose's Test: N/A
[2018-12-23] MEDS ORDERED: ceFAZolin/Water 2 GM/20 ML 0 GM/0 ML SYRINGE IV ONE (07:42)
[2018-12-23] MEDS ORDERED: WATER FOR IRRIG STERILE 1,500 ML BOTTLE IR ONE (07:46)
[2018-12-23] MEDS ORDERED: SODIUM CHLORIDE 0.9% IRR 1,500 ML BOTTLE IR ONE (07:46)
[2018-12-23] MEDS ORDERED: GENTAMICIN/NS 80 MG/100 ML 100 ML IV ONE ×2 (07:54→08:00)
[2018-12-23] MEDS ORDERED: OXYTOCIN 20 UNIT/1000ML DRIP 20 UNITS/1,000 ML BAG IV SCH ×2 (08:00→11:26)
[2018-12-23] MEDS ORDERED: ceFAZolin/Water 2 GM/20 ML 2 GM/20 ML SYRINGE IV NR (08:00)
[2018-12-23] MEDS ORDERED: ONDANSETRON 4 MG/2 ML INJ ONE (09:06)
--- NOTE | 2018-12-23 09:33 | Post Anesthesia Evaluation ---
- Post Anesthesia Evaluation Patient Participated: Yes Airway Patent: Yes Stable Respiratory Function: Yes Nausea/Vomiting: No Temp > 96.8F: Yes Pain Manageable: Yes Adequeate Hydration: Yes Anesthesia Complications: No Block Receding Appropriately: Yes Patient on Ventilator: No
[2018-12-23] MEDS: HYDROmorphone 1 MG/1 ML INJ IV PRN ×4 (09:51→10:46)
--- NOTE | 2018-12-23 09:59 | Post Operative Note ---
Pre-op diagnosis: Type 1 Diabetes, poorly controlled, Previous , Elective sterilizat Post-op diagnosis: same Findings: Normal uterus tubes and ovaries with copious amniotic fluid, viable female weight 7 pounds 3 ounces,3273 grams, apgars 8,9. Procedure: Repeat with bilateral tubal ligation Anesthesia: MAC Surgeon: STONEY HUSSEIN Material Checker: JESUS BOYER Estimated blood loss: other (700 cc) Pathology: list (portion of right and left tubes) Specimen disposition: to lab Condition: stable Disposition: PACU
--- NOTE | 2018-12-23 10:15 | Operative Report ---
Operative Report Operative Report: The operative report for patient Nubia Hernandez Date of service: 12/23/18 Preoperative diagnosis: Intrauterine at 35 5/7 weeks 2. Previous 3. Poorly controlled Type 1 Diabetes 4.Polyhydramnios 5. LGA 6.Undesired fertility Postoperative diagnosis: Same Procedure: Repeat low transverse section, Bilateral tubal ligation Surgeon: Dr. Ginny Hartman EBL: 700 Urine output: 200 mL IV fluids: 1300 mL Findings: Viable female in the vertex presentation Weight 7 lbs. 3.4 oz. 3273 g Apgars 8 and 8. Otherwise normal pelvic anatomy Specimens: Portion of right and left fallopian tube Complications: None Procedure: The patient was admitted to the OR with IV running and in place. She was properly identified as herself. She was given spinal anesthesia in the OR without difficulty. She was placed in the dorsal supine position with a leftward tilt. A Guerra catheter was inserted. She was then prepped and draped in the normal sterile fashion. An Allis test was used to confirm adequate anesthesia. Once confirmed, the incision was made with the scalpel and carried to the underlying fascia using the scalpel and the Bovie. The fascia was incised in the midline and incision was extended bilaterally using the curved Torres scissors. The fascia was then dissected from the underlying rectus muscles in a series of sharp and blunt dissection using the Torres scissors. Muscles were in the in the midline sharply using Metzenbaum scissors and the peritoneum was entered into bluntly using the surgeon's fingers. A bladder blade was then placed into the incision to protect the bladder. An Angelo retractor was then placed in the incision. Hysterotomy incision was then made in the scalpel. Upon uterine entry, the amniotic sac was ruptured for copious amounts of clear fluid (approx 2 L). The infant was then delivered in the vertex position. Her mouth and nose were suctioned on the field. The cord was clamped and cut and he was handed to the waiting NICU personnel. The uterus was then exteriorized and cleared of all clots and debris. The hysterotomy incision was then closed in a running locked fashion using 0 Vicryl. The abdomen was then copiously irrigated with warm normal saline. Attention was turned the the fallopian tubes. Each tube was identified and followed out the the fimbriated end. Each tube was grasped in the midportion and ligated in the [place] style Tubal ligation. Following this the uterus was replaced into the abdominal cavity. At this point the muscles were reapproximated in the midline using individual sutures of 0 Vicryl. Following this the fascia was closed in a running fashion using 0 Vicryl. Tissue was then copiously irrigated. Retention sutures were placed in the subcutaneous fat tissue Skin was closed with nino. The sponge lap needle and instrument counts were correct 2. The patient tolerated the procedure well. She was taken to recovery in stable condition.
[2018-12-23] MEDS ORDERED: WITCH HAZEL/ GLYCERIN PAD TP PRN (11:26)
[2018-12-23] MEDS ORDERED: LANOLIN/ZINC/DIMETHICONE (LANSINOH) 7 GM TP PRN (11:26)
[2018-12-23] MEDS ORDERED: PRENATAL VIT27-FE FUMARATE-FOLIC ACID VIT TAB PO SCH (11:26)
[2018-12-23] MEDS ORDERED: NALOXONE 0.4 MG/1 ML INJ IV PRN (11:26)
[2018-12-23] MEDS: INSULIN LISPRO 100 UNIT/ML SUB-Q SCH ×2 (12:01→16:11)
[2018-12-23] MEDS: KETOROLAC 30 MG/1 ML INJ IV PRN ×2 (12:11→17:50)
[2018-12-23] MEDS: PRENATAL VIT27-FE FUMARATE-FOLIC ACID VIT TAB PO SCH (15:37)
[2018-12-23] MEDS: INSULIN REGULAR, HUMAN 100 UNITS/1 ML SUB-Q SCH ×3 (16:07→20:19)
[2018-12-23] MEDS: VANCOMYCIN/NS 1 GM/250 ML 1 GM/250 ML BAG IV SCH (20:28)
[2018-12-23] MEDS: oxyCODONE /ACETAMINOPHEN 5-325MG TAB PO PRN (20:37)
[2018-12-23 22:22] LABS: Hematocrit 30.5 % (30.3-42.9)
[2018-12-23] MEDS: diphenhydrAMINE 50 MG CAP PO PRN (22:54)
[2018-12-23] MEDS: INSULIN GLARGINE 100 UNITS/ML SUB-Q SCH (22:54)
[2018-12-24] MEDS: oxyCODONE /ACETAMINOPHEN 5-325MG TAB PO PRN ×2 (03:59→19:42)
[2018-12-24] MEDS: diphenhydrAMINE 50 MG CAP PO PRN ×2 (04:56→22:57)
[2018-12-24] MEDS: IBUPROFEN 800 MG TAB PO PRN (08:31)
[2018-12-24] MEDS: VANCOMYCIN/NS 1 GM/250 ML 1 GM/250 ML BAG IV SCH (08:31)
[2018-12-24] MEDS: PRENATAL VIT27-FE FUMARATE-FOLIC ACID VIT TAB PO SCH (10:37)
[2018-12-24] MEDS: INSULIN LISPRO 100 UNIT/ML SUB-Q SCH ×3 (10:37→17:51)
[2018-12-24] MEDS: INSULIN GLARGINE 100 UNITS/ML SUB-Q SCH ×2 (10:37→23:02)
[2018-12-24] MEDS: INSULIN REGULAR, HUMAN 100 UNITS/1 ML SUB-Q SCH ×3 (10:39→22:58)
[2018-12-24] MEDS: MORPHINE 2 MG/1 ML INJ IV PRN (10:51)
[2018-12-24] MEDS: KETOROLAC 30 MG/1 ML INJ IV PRN (16:50)
--- NOTE | 2018-12-24 19:31 | Progress Note ---
Assessment and Plan POD 1 s/p rltcs at 35 weeks for poorly controlled DM Type 1. 1. Pt complains of pain that may or may not be assoiciated with incision. Will write order for PO dilaudid to see if better pain control can be achieved. 2.Pt continues to have elevated blood sugars which is to be expected. Will consult hospitalist for therapy and outpatient insulin regimen. Subjective - Subjective Date of service: 12/24/18 Principal diagnosis: Elevated blood glucose Interval history: Pt is a 28 year old pod 1 s/p rltcs. Doing well except for complaint of pain on right side above incision. Pt has been ambulating and reports good f latus. She continues to be on sliding scaled insulin. Patient reports: appetite normal, voiding normally, flatus, pain poorly controlled, ambulating normally [place]: in NICU Objective - Vital Signs Latest vital signs: Vital Signs Temp Pulse Resp BP BP Pulse Ox 12/24/18 07:59 98.7 F 84 18 124/72 96 12/24/18 06:53 98.4 F 84 18 122/78 100 12/24/18 06:50 98.4 F 84 20 100 12/24/18 03:59 18 12/24/18 02:54 97.9 F 80 20 122/79 97 12/23/18 22:15 97.9 F 88 20 135/76 99 12/23/18 20:37 18 Intake and Output 12/24/18 12/24/18 12/24/18 06:59 14:59 22:59 Intake Total 360 240 Output Total 1000 600 Balance -640 -360 Intake: Intake, Free Water 360 240 Output: Urine 1000 600 Indwelling Catheter 1000 Void 600 Other: Total, Output Amount 1000 600 - Exam Breasts: Present: deferred Cardiovascular: Present: Regular rate, Normal S1, Normal S2 Lungs: Present: Clear to auscultation, Normal air movement Abdomen: Present: normal appearance, soft, tenderness (rlq only), normal bowel sounds Uterus: Present: normal, firm Extremities: Present: normal Deep Tendon Reflex Grade: Normal +2 Incision: Present: normal, dry, intact, dressed - Labs Labs: Abnormal lab results 12/23/18 12/23/18 12/24/18 Range/Units 20:20 21:40 08:07 Hgb 10.0 L (10.1-14.3) gm/dl POC Glucose 214 H 45 L (70-105) 12/24/18 12/24/18 12/24/18 Range/Units 10:29 14:50 17:34 Hgb (10.1-14.3) gm/dl POC Glucose 127 H 233 H 209 H (70-105)
[2018-12-25] MEDS: HYDROmorphone 2 MG TAB PO PRN ×2 (01:32→10:53)
[2018-12-25] MEDS: KETOROLAC 30 MG/1 ML INJ IV PRN ×3 (04:15→22:09)
[2018-12-25] MEDS: INSULIN LISPRO 100 UNIT/ML SUB-Q SCH ×5 (08:30→22:19)
[2018-12-25] MEDS: INSULIN GLARGINE 100 UNITS/ML SUB-Q SCH ×2 (08:32→22:10)
[2018-12-25] MEDS: INSULIN REGULAR, HUMAN 100 UNITS/1 ML SUB-Q SCH ×3 (10:30→22:00)
[2018-12-25] MEDS: PRENATAL VIT27-FE FUMARATE-FOLIC ACID VIT TAB PO SCH ×2 (10:53→10:55)
--- NOTE | 2018-12-25 15:22 | Progress Note ---
Assessment and Plan A/P POD 2 s/p csec Poorly controlled DM consulted with hospitalist continue post op care Subjective - Subjective Date of service: 12/25/18 Principal diagnosis: Elevated blood glucose Patient reports: appetite normal, voiding normally, pain well controlled : doing well Objective - Vital Signs Latest vital signs: Vital Signs Temp Pulse Resp BP BP Pulse Ox 12/25/18 08:44 97.9 F 87 18 132/84 12/25/18 01:15 97.4 F L 92 H 20 132/88 99 12/24/18 17:04 98.9 F 92 H 20 135/89 99 Intake and Output 12/24/18 12/25/18 12/25/18 23:59 07:59 15:59 Intake Total 720 480 Output Total 800 Balance -80 480 Intake: Oral 480 Intake, Free Water 720 Output: Urine 800 Void 800 Other: Total, Intake Amount 480 Total, Output Amount 800 # Voids Void 3 - Exam Cardiovascular: Present: Regular rate, Normal S1 Lungs: Present: Clear to auscultation, Normal air movement Abdomen: Present: normal appearance, soft, normal bowel sounds. Absent: distention, tenderness, guarding Vulva: both: normal Uterus: Present: normal, firm, fundal height below umbilicus. Absent: bogginess, tenderness Extremities: Present: normal Deep Tendon Reflex Grade: Normal +2 Incision: Present: normal - Labs Labs: Abnormal lab results 12/24/18 12/24/18 12/25/18 Range/Units 17:34 22:51 08:25 POC Glucose 209 H 248 H 121 H (70-105) 12/25/18 Range/Units 15:22 POC Glucose 180 H (70-105)
[2018-12-25] MEDS ORDERED: CYCLOBENZAPRINE 10 MG TAB PO ONE (17:00)
--- NOTE | 2018-12-25 20:58 | Consultation ---
History of Present Illness - Reason for Consult Consult date: 12/25/18 management of diabetes Requesting physician: EARLENE MONTEMAYOR - History of Present Illness 28-year-old with type 1 diabetes recently delivered on 12/23/2018. was done at 35/37 weeks to deliver the baby. FEV DE All Past History Social history: single Medications and Allergies Allergies Allergy/AdvReac Type Severity Reaction Status Date / Time clindamycin Allergy Swelling Verified 12/18/18 20:49 doxycycline Allergy Swelling Verified 12/18/18 20:49 Penicillins AdvReac Swelling Verified 12/18/18 20:49 Home Medications Medication Instructions Recorded Confirmed Last Taken Type Docusate Sodium [Colace] 100 mg PO BID PRN #60 capsule 12/24/18 Unknown Rx Ibuprofen [Motrin] 800 mg PO Q8HR PRN #40 tablet 12/24/18 Unknown Rx oxyCODONE /ACETAMINOPHEN [Percocet 2 tab PO Q6HR PRN #30 tablet 12/24/18 Unknown Rx 5/325] Active Meds: Active Medications Acetaminophen (Tylenol) 650 mg PO Q4H PRN PRN Reason: Pain MILD(1-3)/Fever >100.5/[place] Last Admin: 12/17/18 05:15 Dose: 650 mg Documented by: Diphenhydramine HCl (Benadryl) 50 mg PO Q6H PRN PRN Reason: Itching Last Admin: 12/24/18 22:57 Dose: 50 mg Documented by: Hydromorphone HCl (Dilaudid) 2 mg PO Q6H PRN PRN Reason: Pain , Severe (7-10) Last Admin: 12/25/18 10:53 Dose: 2 mg Documented by: Sodium Chloride (Nacl 0.9% 1000 Ml) 1,000 mls @ 75 mls/hr IV DIRECT BRE Last Admin: 12/16/18 23:04 Dose: 75 mls/hr Documented by: Oxytocin/Sodium Chloride (Pitocin/Ns 20 Unit/1000ml Drip) 20 units in 1,000 mls @ 0 mls/hr IV TITR BRE Oxytocin/Sodium Chloride (Pitocin/Ns 20 Unit/1000ml Drip) 20 units in 1,000 mls @ 250 mls/hr IV DIRECT BRE Ibuprofen (Ibuprofen) 800 mg PO Q6H PRN PRN Reason: Pain, Mild (1-3) Last Admin: 12/24/18 08:31 Dose: 800 mg Documented by: Insulin Glargine (Lantus) 70 units SUB-Q QAMDIAB [facility] Last Admin: 12/25/18 08:32 Dose: 70 units Documented by: Insulin Glargine (Lantus) 70 units SUB-Q QHS [facility] Last Admin: 12/23/18 22:54 Dose: 70 units Documented by: Insulin Human Lispro (Humalog) 16 unit SUB-Q AC [facility] Last Admin: 12/25/18 17:33 Dose: 16 unit Documented by: Insulin Human Regular (Humulin R) 0 units SUB-Q 1000,1400,1900 [facility]; Protocol Last Admin: 12/25/18 14:00 Dose: Not Given Documented by: Ketorolac Tromethamine (Toradol) 30 mg IV Q6H PRN PRN Reason: Pain, Moderate (4-6) Stop: 12/28/18 11:25 Last Admin: 12/25/18 13:53 Dose: 30 mg Documented by: Morphine Sulfate (Morphine) 2 mg IV Q4H PRN PRN Reason: Pain, Moderate (4-6) Last Admin: 12/24/18 10:51 Dose: 2 mg Documented by: Multi-Ingredient Ointment (Lansinoh) 1 applic TP PRN PRN PRN Reason: dryness/cracking Multivitamins/Iron/Calcium ( Vitamin) 1 each PO QDAY [facility] Last Admin: 12/25/18 10:55 Dose: Not Given Documented by: Naloxone HCl (Naloxone) 0.1 mg IV Q2MIN PRN PRN Reason: Res Rate </= 8 or 02 SAT < 92% Ondansetron HCl (Zofran) 4 mg IV Q8H PRN PRN Reason: Nausea And Vomiting Oxycodone/Acetaminophen (Percocet 5/325) 2 tab PO Q4H PRN PRN Reason: Pain, Moderate (4-6) Last Admin: 12/24/18 19:42 Dose: 2 tab Documented by: Mikaela Dale/Glycerin (Tucks Pad) 1 each TP PRN PRN PRN Reason: Hemorrhoids/cleansing/soothing Exam - Constitutional Vitals: Temp Pulse Resp BP Pulse Ox 97.9 F 87 18 132/84 99 12/25/18 08:44 11/15/19 08:44 12/25/18 08:44 12/25/18 08:44 12/25/18 01:15 Results - Labs CBC & Chem 7: 12/23/18 21:40 12/18/18 00:28 Labs: Abnormal lab results 12/24/18 12/25/18 12/25/18 Range/Units 22:51 08:25 15:22 POC Glucose 248 H 121 H 180 H (70-105) 12/25/18 Range/Units 19:34 POC Glucose 228 H (70-105)
--- NOTE | 2018-12-25 21:50 | Event Note ---
Date: 12/25/18 Hospitalist group was asked to manage blood glucose levels. Patient's blood glucose levels being managed by perinatology group Patient was started on Lantus 70 units twice a day and 16 units of regular insulin before each meal. Perinatology to follow inpatient and outpatient. Hemoglobin A1c is high and patient is noncompliant Perinatology group to take care of the management of diabetes. If necessary call us on [phone].
[2018-12-25] MEDS: diphenhydrAMINE 50 MG CAP PO PRN (22:10)
[2018-12-26] MEDS: MORPHINE 2 MG/1 ML INJ IV PRN ×2 (03:11→17:21)
[2018-12-26] MEDS: INSULIN LISPRO 100 UNIT/ML SUB-Q SCH ×7 (07:30→22:56)
[2018-12-26] MEDS: INSULIN GLARGINE 100 UNITS/ML SUB-Q SCH ×2 (09:08→22:57)
[2018-12-26] MEDS: HYDROmorphone 2 MG TAB PO PRN ×2 (09:14→22:55)
[2018-12-26] MEDS: PRENATAL VIT27-FE FUMARATE-FOLIC ACID VIT TAB PO SCH (09:51)
--- NOTE | 2018-12-26 11:00 | Progress Note ---
Assessment and Plan A/P POD 3 s/p csec Poorly controlled DM- reconsulted wtih Dr. Walt Whitlock consulted with hospitalist continue post op care hold discharge until tomorrow Subjective - Subjective Date of service: 12/26/18 Principal diagnosis: Elevated blood glucose Patient reports: appetite normal, voiding normally, pain well controlled, flatus, ambulating normally : doing well Objective - Vital Signs Latest vital signs: Vital Signs Temp Pulse Resp BP Pulse Ox 12/26/18 08:38 98.3 F 97 H 18 136/81 98 12/26/18 00:28 98.8 F 107 H 18 133/73 97 Intake and Output 12/25/18 12/26/18 12/26/18 23:59 07:59 15:59 Intake Total 360 120 Balance 360 120 Intake: Intake, Free Water 360 120 Other: # Voids Void 1 - Exam Breasts: Present: normal Cardiovascular: Present: Regular rate, Normal S1 Lungs: Present: Clear to auscultation, Normal air movement Abdomen: Present: normal appearance, soft, normal bowel sounds. Absent: distention, tenderness, guarding Vulva: both: normal Uterus: Present: normal, firm, fundal height below umbilicus. Absent: bogginess, tenderness Extremities: Present: normal Deep Tendon Reflex Grade: Normal +2 Incision: Present: normal, dry, intact - Labs Labs: Abnormal lab results 12/25/18 12/25/18 12/25/18 Range/Units 15:22 19:34 22:18 POC Glucose 180 H 228 H 259 H (70-105)
[2018-12-26] MEDS: KETOROLAC 30 MG/1 ML INJ IV PRN ×2 (11:31→22:34)
--- NOTE | 2018-12-26 13:42 | Consultation ---
Past History Social history: single Medications and Allergies Allergies Allergy/AdvReac Type Severity Reaction Status Date / Time clindamycin Allergy Swelling Verified 12/18/18 20:49 doxycycline Allergy Swelling Verified 12/18/18 20:49 Penicillins AdvReac Swelling Verified 12/18/18 20:49 Home Medications Medication Instructions Recorded Confirmed Last Taken Type Docusate Sodium [Colace] 100 mg PO BID PRN #60 capsule 12/24/18 Unknown Rx Ibuprofen [Motrin] 800 mg PO Q8HR PRN #40 tablet 12/24/18 Unknown Rx oxyCODONE /ACETAMINOPHEN [Percocet 2 tab PO Q6HR PRN #30 tablet 12/24/18 Unknown Rx 5/325] Active Meds: Active Medications Acetaminophen (Tylenol) 650 mg PO Q4H PRN PRN Reason: Pain MILD(1-3)/Fever >100.5/[place] Last Admin: 12/17/18 05:15 Dose: 650 mg Documented by: Diphenhydramine HCl (Benadryl) 50 mg PO Q6H PRN PRN Reason: Itching Last Admin: 12/25/18 22:10 Dose: 50 mg Documented by: Hydromorphone HCl (Dilaudid) 2 mg PO Q6H PRN PRN Reason: Pain , Severe (7-10) Last Admin: 12/26/18 09:14 Dose: 2 mg Documented by: Sodium Chloride (Nacl 0.9% 1000 Ml) 1,000 mls @ 75 mls/hr IV DIRECT BRE Last Admin: 12/16/18 23:04 Dose: 75 mls/hr Documented by: Oxytocin/Sodium Chloride (Pitocin/Ns 20 Unit/1000ml Drip) 20 units in 1,000 mls @ 0 mls/hr IV TITR BRE Oxytocin/Sodium Chloride (Pitocin/Ns 20 Unit/1000ml Drip) 20 units in 1,000 mls @ 250 mls/hr IV DIRECT BRE Ibuprofen (Ibuprofen) 800 mg PO Q6H PRN PRN Reason: Pain, Mild (1-3) Last Admin: 12/24/18 08:31 Dose: 800 mg Documented by: Insulin Glargine (Lantus) 70 units SUB-Q QAMDIAB BRE Last Admin: 12/26/18 09:08 Dose: 70 units Documented by: [facility]ulin [facility] ([facility]) [facility] Last Admin: 12/25/18 22:10 Dose: 70 units Documented by: Insulin Human Lispro (Humalog) 16 unit SUB-Q [facility] Last Admin: 12/26/18 09:08 Dose: 16 unit Documented by: Insulin Human Lispro (Humalog) 0 unit SUB-Q ACHS [facility]; Protocol Last Admin: 12/25/18 22:19 Dose: 4 unit Documented by: Ketorolac Tromethamine (Toradol) 30 mg IV Q6H PRN PRN Reason: Pain, Moderate (4-6) Stop: 12/28/18 11:25 Last Admin: 12/26/18 11:31 Dose: 30 mg Documented by: Morphine Sulfate (Morphine) 2 mg IV Q4H PRN PRN Reason: Pain, Moderate (4-6) Last Admin: 12/26/18 03:11 Dose: 2 mg Documented by: Multi-Ingredient Ointment (Lansinoh) 1 applic TP PRN PRN PRN Reason: dryness/cracking Multivitamins/Iron/Calcium ( Vitamin) 1 each PO QDAY [facility] Last Admin: 12/25/18 10:55 Dose: Not Given Documented by: Naloxone HCl (Naloxone) 0.1 mg IV Q2MIN PRN PRN Reason: Res Rate </= 8 or 02 SAT < 92% Ondansetron HCl (Zofran) 4 mg IV Q8H PRN PRN Reason: Nausea And Vomiting Oxycodone/Acetaminophen (Percocet 5/325) 2 tab PO Q4H PRN PRN Reason: Pain, Moderate (4-6) Last Admin: 12/24/18 19:42 Dose: 2 tab Documented by: Mikaela Dale/Glycerin (Tucks Pad) 1 each TP PRN PRN PRN Reason: Hemorrhoids/cleansing/soothing Exam - Constitutional Vitals: Temp Pulse Resp BP Pulse Ox 98.3 F 97 H 18 136/81 98 12/26/18 08:38 12/26/18 08:38 12/26/18 08:38 12/26/18 08:38 12/26/18 08:38 Results - Labs CBC & Chem 7: 12/23/18 21:40 12/18/18 00:28 Labs: Abnormal lab results 12/25/18 12/25/1819 Range/Units 15:22 19:34 22:18 POC Glucose 180 H 228 H 259 H (70-105) 12/26/18 Range/Units 11:28 POC Glucose 47 L (70-105)
[2018-12-27] MEDS: HYDROmorphone 2 MG TAB PO PRN ×3 (05:35→17:21)
[2018-12-27] MEDS: diphenhydrAMINE 50 MG CAP PO PRN ×2 (05:39→23:15)
--- NOTE | 2018-12-27 10:13 | Progress Note ---
Assessment and Plan Assessment and plan: 28F with DM Hospitalist group was asked to manage blood glucose levels. Patient's blood glucose levels was being managed by perinatology group in [place] , but has now delivered a baby and is now in mother/baby Pt was hypoglycemic at 0955 today, but had not eaten breakfast, recommend giving diet and holding am insulin. has been low with fasting glc, and high the rest of the day cont lantus at at decreased dose, cont bolus insulin and SSI Hemoglobin A1c is high at 12.5 and patient is noncompliant Preventative health counseling performed for 17 minutes Diagnosis Diabetes, insulin-dependent, poorly controlled Nonadherence to medications, dvt ppx per primary team History Interval history: Review of systems Constitutional: No fevers, no malaise, no joint pains CVS: No chest pain, no orthopnea, no pedal edema GI: No abdominal pain, no diarrhea, no vomiting, no constipation Respiratory: , no wheezing, no coughing Hospitalist Physical - Physical exam Narrative exam: General.: Appears well, no distress, nontoxic HEENT: Moist mucous membranes, extraocular muscles intact, no lymphadenopathy Neck: supple Cardiac: S1-S2 heard Lungs: clear to auscultation bilaterally Abdomen: soft , nontender, nondistended, bowel sounds positive Extremities: no edema clubbing or cyanosis Skin: no rash or lesions Neurologic: no gross focal deficits Psych: calm, and cooperative - Constitutional Vitals: Temp Pulse Resp BP Pulse Ox 98 F 106 H 18 118/73 98 12/27/18 09:55 12/27/18 09:55 12/27/18 09:55 12/27/18 09:55 12/27/18 09:55 Results - Labs CBC & Chem 7: 12/23/18 21:40 12/18/18 00:28 Labs: Laboratory Last Values WBC 10.1 K/mm3 (4.5-11.0) 12/22/18 20:15 RBC 4.04 M/mm3 (3.65-5.03) 12/22/18 20:15 Hgb 10.0 gm/dl (10.1-14.3) L 12/23/18 21:40 Hct 30.5 % (30.3-42.9) 12/23/18 21:40 MCV 83 fl (79-97) 12/22/18 20:15 MCH 28 pg (28-32) 12/22/18 20:15 MCHC 34 % (30-34) 12/22/18 20:15 RDW 14.4 % (13.2-15.2) 12/22/18 20:15 Plt Count 424 K/mm3 (140-440) 12/22/18 20:15 Lymph % (Auto) 26.0 % (13.4-35.0) 12/22/18 20:15 [place] % (Auto) 8.0 % (0.0-7.3) H 12/22/18 20:15 Eos % (Auto) 0.9 % (0.0-4.3) 12/22/18 20:15 Baso % (Auto) 0.3 % (0.0-1.8) 12/22/18 20:15 Lymph # 2.6 K/mm3 (1.2-5.4) 12/22/18 20:15 [place] # 0.8 K/mm3 (0.0-0.8) 12/22/18 20:15 Eos # 0.1 K/mm3 (0.0-0.4) 12/22/18 20:15 Baso # 0.0 K/mm3 (0.0-0.1) 12/22/18 20:15 Seg Neutrophils % 64.8 % (40.0-70.0) 12/22/18 20:15 Seg Neutrophils # 6.5 K/mm3 (1.8-7.7) 12/22/18 20:15 POC ABG pH 7.356 (7.35-7.45) 12/18/18 06:37 POC ABG pCO2 24.8 (35-45) L 12/18/18 06:37 POC ABG pO2 103 (80-105) 12/18/18 06:37 POC ABG HCO3 13.9 (22-26 mml/L) 12/18/18 06:37 POC ABG Total CO2 15 (23-27mmol/L) 12/18/18 06:37 POC ABG O2 Sat 98 12/18/18 06:37 POC ABG Base Excess -12 ((-2) - (+3)mmol/L) 12/18/18 06:37 FiO2 21 % 12/18/18 06:37 Sodium 130 mmol/L (137-145) L 12/18/18 00:28 Potassium 4.6 mmol/L (3.6-5.0) 12/18/18 00:28 Chloride 102.1 mmol/L (98-107) 12/18/18 00:28 Carbon Dioxide 14 mmol/L (22-30) L 12/18/18 00:28 Anion Gap 19 mmol/L 12/18/18 00:28 BUN 10 mg/dL (7-17) 12/18/18 00:28 Creatinine 0.5 mg/dL (0.7-1.2) L 12/18/18 00:28 Estimated GFR > 60 ml/min 12/18/18 00:28 BUN/Creatinine Ratio 20 % 12/18/18 00:28 Glucose 464 mg/dL (65-100) H 12/18/18 00:28 POC Glucose 220 (70-105) H 12/26/18 22:49 Hemoglobin A1c 12.5 % (4-6) H 12/16/18 22:02 Ketones Quantitative Negative (Negative) 12/18/18 00:28 Calcium 8.7 mg/dL (8.4-10.2) 12/18/18 00:28 Total Bilirubin < 0.20 mg/dL (0.1-1.2) 12/18/18 00:28 AST 9 units/L (5-40) 12/18/18 00:28 ALT < 5 units/L (7-56) L 12/18/18 00:28 Alkaline Phosphatase 104 units/L (35-129) 12/18/18 00:28 Total Protein 6.4 g/dL (6.3-8.2) 12/18/18 00:28 Albumin 3.0 g/dL (3.9-5) L 12/18/18 00:28 Albumin/Globulin Ratio 0.9 % 12/18/18 00:28 Urine Total Volume 1300 ml 12/17/18 20:30 Ur Total Protein 24 Hr 260.00 mg/dL (2-200) H 12/17/18 20:30 Urine Total Protein 20 mg/dL (5-11.8) H 12/17/18 20:30 Urine Opiates Screen Presumptive negative 12/18/18 05:10 Urine Methadone Screen Presumptive negative 12/18/18 05:10 Ur Barbiturates Screen Presumptive negative 12/18/18 05:10 Ur Phencyclidine Scrn Presumptive negative 12/18/18 05:10 Ur Amphetamines Screen Presumptive negative 12/18/18 05:10 U Benzodiazepines Scrn Presumptive negative 12/18/18 05:10 Urine Cocaine Screen Presumptive negative 12/18/18 05:10 U Marijuana (THC) Screen Presumptive negative 12/18/18 05:10 Drugs of Abuse Note Disclamer 12/18/18 05:10 Syphilis IgG Antibody Non-reactive (NonReactive) 12/22/18 20:15 Blood Type O POSITIVE 12/22/18 20:05 Antibody Screen Negative 12/22/18 20:05 Active Medications - Current Medications Current Medications: Generic Name Dose Route Start Last Admin Trade Name Freq PRN Reason Stop Dose Admin Acetaminophen 650 mg 12/16/18 21:18 12/17/18 05:15 Tylenol PO 650 mg Q4H PRN Administration Pain MILD(1-3)/Fever >100.5/[place] Diphenhydramine HCl 50 mg 12/23/18 22:44 12/27/18 05:39 Benadryl PO 50 mg Q6H PRN Administration Itching Hydromorphone HCl 2 mg 12/24/18 19:38 12/27/18 05:35 Dilaudid PO 2 mg Q6H PRN Administration Pain , Severe (7-10) Sodium Chloride 1,000 mls @ 75 mls/hr 12/16/18 23:00 12/16/18 23:04 Nacl 0.9% 1000 Ml IV 75 mls/hr DIRECT BRE Administration Oxytocin/Sodium Chloride 20 units in 1,000 mls @ 0 mls/hr 12/23/18 08:00 Pitocin/Ns 20 Unit/1000ml Drip IV TITR BRE As Directed Oxytocin/Sodium Chloride 20 units in 1,000 mls @ 250 mls/hr 12/23/18 11:26 Pitocin/Ns 20 Unit/1000ml Drip IV DIRECT BRE Ibuprofen 800 mg 12/23/18 11:26 12/24/18 08:31 Ibuprofen PO 800 mg Q6H PRN Administration Pain, Mild (1-3) Insulin Glargine 70 units 12/19/18 08:00 12/26/18 09:08 Lantus SUB-Q 70 units QAMDIAB BRE Administration Insulin Glargine 70 units 12/19/18 22:00 12/26/18 22:57 Lantus SUB-Q 70 units QHS BRE Administration Insulin Human Lispro 16 unit 12/20/18 11:30 12/26/18 17:22 Humalog SUB-Q 16 unit AC BRE Administration Insulin Human Lispro 0 unit 12/25/18 22:00 12/26/18 22:56 Humalog SUB-Q 3 unit ACHS BRE Administration Protocol Ketorolac Tromethamine 30 mg 12/23/18 11:26 12/26/18 22:34 Toradol IV 12/28/18 11:25 30 mg Q6H PRN Administration Pain, Moderate (4-6) Morphine Sulfate 2 mg 12/23/18 11:26 12/26/18 17:21 Morphine IV 2 mg Q4H PRN Administration Pain, Moderate (4-6) Multi-Ingredient Ointment 1 applic 12/23/18 11:26 Lansinoh TP PRN PRN dryness/cracking Multivitamins/Iron/Calcium 1 each 12/17/18 10:00 12/26/18 09:51 Vitamin PO Not Given QDAY [facility] Naloxone HCl 0.1 mg 12/23/18 11:26 Naloxone IV Q2MIN PRN Res Rate </= 8 or 02 SAT < 92% Ondansetron HCl 4 mg 12/23/18 07:30 Zofran IV Q8H PRN Nausea And Vomiting Oxycodone/Acetaminophen 2 tab 12/23/18 11:26 12/24/18 19:42 Percocet 5/325 PO 2 tab Q4H PRN Administration Pain, Moderate (4-6) Witch [place]/Glycerin 1 each 12/23/18 11:26 Tucks Pad TP PRN PRN Hemorrhoids/cleansing/soothing Nutrition/Malnutrition Assess - Dietary Evaluation Nutrition/Malnutrition Findings: Nutrition Notes Start: 12/17/18 09:47 Freq: Status: Active Protocol: Document 12/18/18 13:22 RM (Rec: 12/18/18 13:29 RM [id number]) Nutrition Notes Initial or Follow up Reassessment Current Diagnosis Diabetes Other Pertinent Diagnosis 34.5 wk Gestation Current Diet GDM diet Labs/Tests Reviewed Pertinent Medications Reviewed Height 5 ft 5 in Weight 100.344 kg [place] Body Weight (kg) 56.81 BMI 36.8 Subjective/Other Information Diet advanced to GDM. Pt stated that her appetite is good and that she ate all of her dinner last night and breakfast this morning. Pt stated that she is familiar with DM diet education and has no further questions related to it. Percent of energy/protein needs met: 93%/82% Burn Absent Trauma Absent Minimum of two criteria No #1 Nutrition Diagnosis Limited adherence to nutrition -related recommendations As Evidenced by Signs and Symptoms pt statement that she is familiar with DM diet education and has no further questions related to it Diagnosis Progress(for reassessment Resolved documentation) Is patient on ventilator? No Is Patient Ambulatory and/or Out of Bed Yes REE-([facility]-ambulatory/OOB) [ [id number] [id number]] Calculation Used for Recommendations [facility] Additional Notes PRO needs: 110g (1.1 g/kg) Fluid needs: 35-40ml/kg previd wt Nutrition Intervention Change Diet Order: Continue current Anticipated Discharge Needs: Consistent CHO Revisit per MD consult or patient Sign Off request:
--- NOTE | 2018-12-27 10:13 | Progress Note ---
Assessment and Plan A/P POD 4 s/p csec Poorly controlled DM- reconsulted wtih Dr. Walt Whitlock consulted with hospitalist -still awaiting recommnedation ( sugars still 300s to 50s ) continue post op care Subjective - Subjective Date of service: 12/27/18 Principal diagnosis: Elevated blood glucose Patient reports: appetite normal, voiding normally, pain well controlled, flatus, ambulating normally : doing well, in NICU Objective - Vital Signs Latest vital signs: Vital Signs Temp Pulse Resp BP Pulse Ox 12/27/18 09:55 98 F 106 H 18 118/73 98 12/27/18 06:35 18 12/27/18 05:35 18 12/26/18 23:55 18 12/26/18 23:16 98.4 F 93 H 20 130/80 98 12/26/18 23:04 18 12/26/18 22:55 18 12/26/18 22:34 18 12/26/18 17:09 98.1 F 103 H 18 130/73 98 Intake and Output 12/26/18 12/27/18 12/27/18 23:59 07:59 15:59 Intake Total 600 250 Balance 600 250 Intake: IV 10 Right Hand 10 Oral 360 Intake, Free Water 240 240 Other: Total, Intake Amount 360 # Voids Void 2 1 - Exam Breasts: Present: normal Cardiovascular: Present: Regular rate, Normal S1 Lungs: Present: Clear to auscultation, Normal air movement Abdomen: Present: soft, normal bowel sounds. Absent: distention, tenderness, guarding Vulva: both: normal Uterus: Present: normal, firm, fundal height below umbilicus. Absent: bogginess, tenderness Extremities: Present: normal Deep Tendon Reflex Grade: Normal +2 Incision: Present: normal - Labs Labs: Abnormal lab results 12/26/18 12/26/18 12/26/18 Range/Units 11:28 15:05 22:49 POC Glucose 47 L 377 H 220 H (70-105)
[2018-12-27] MEDS ORDERED: INSULIN LISPRO 100 UNIT/ML SUB-Q SCH (11:30)
[2018-12-27] MEDS ORDERED: INSULIN GLARGINE 100 UNITS/ML SUB-Q ONE (12:00)
[2018-12-27] MEDS: oxyCODONE /ACETAMINOPHEN 5-325MG TAB PO PRN ×2 (13:09→23:10)
--- NOTE | 2018-12-27 17:21 | Ultrasound Report ---
Transabdominal pelvic ultrasound INDICATION: Postop abdominal pain FINDINGS: The ovaries are not identified due to overlying gas. Uterus measures 16 x 10 x 13 cm. there is an area of diminished echogenicity in the anterior myometrium presumably from the sectio n. Small amount of fluid is seen in the endometrial cavity. There is no free fluid in the abdomen. No definite hematoma or abscess. Again the ovaries are not seen. IMPRESSION: No definite abnormality. Signer Name: Arik Lundberg MD Signed: 12/27/2018 5:17 PM Workstation Name: [id number]
--- NOTE | 2018-12-27 17:24 | Ultrasound Report ---
ULTRASOUND ABDOMEN, COMPLETE INDICATION: severe pain to abdomen. COMPARISON: None available. FINDINGS: Pancreas: Mildly enlarged pancreatic duct at 4 mm. Abdominal Aorta: Normal. IVC: Normal. Liver: Normal. Gallbladder: Normal. Bile ducts: Normal. Common Bile Duct measures 4.3 mm. Right Kidney: Normal. Left Kidney: Small stone in the left lower pole. Spleen: Prominent at 13 cm. Free fluid: None. Additional Findings: None. IMPRESSION: 1. Incidental findings as described but no acute abnormality. Signer Name: Arik Lundberg MD Signed: 12/27/2018 5:20 PM Workstation Name: [id number]
[2018-12-27] MEDS: KETOROLAC 30 MG/1 ML INJ IV PRN (17:33)
[2018-12-27] MEDS: PRENATAL VIT27-FE FUMARATE-FOLIC ACID VIT TAB PO SCH (18:45)
[2018-12-27 20:53] LABS: Basophils # (Auto) 0.1 K/mm3 (0.0-0.1); Basophils % (Auto) 0.4 % (0.0-1.8); Eosinophils # (Auto) 0.1 K/mm3 (0.0-0.4); Eosinophils % (Auto) 0.6 % (0.0-4.3); Hematocrit 30.6 % (30.3-42.9); Hemoglobin 10.1 gm/dl (10.1-14.3); Lymphocytes # (Auto) 1.7 K/mm3 (1.2-5.4); Lymphocytes % (Auto) 10.6 % (13.4-35.0); Mean Corpuscular HGB Conc 33 % (30-34); Mean Corpuscular Volume 82 fl (79-97); Monocytes # (Auto) 1.4 K/mm3 (0.0-0.8); Monocytes % (Auto) 8.7 % (0.0-7.3); Platelet Count 452 K/mm3 (140-440); Red Blood Count 3.71 M/mm3 (3.65-5.03); Red Cell Distribution Width 14.3 % (13.2-15.2)
--- NOTE | 2018-12-27 21:16 | Event Note ---
Pt seen and evaluated. Pt resting comfortably. Pt her infant. Pt acknowledges generalized abdominal discomfort. Pt has h/o gastroparesis, and admixed to have 6-8 small meals daily in contrast to 3 large meals daily that she currently has. No significant physical exam findings. No abnormal abdominal exam findings. CT abdomen pelvis is pending at time of my exam.
[2018-12-27 21:32] LABS: Alanine Aminotransferase 10 units/L (7-56); Albumin 2.9 g/dL (3.9-5); BUN/Creatinine Ratio 24; Blood Urea Nitrogen 12 mg/dL (7-17); Calcium 8.8 mg/dL (8.4-10.2); Hemolysis Index 40
[2018-12-27] MEDS: INSULIN GLARGINE 100 UNITS/ML SUB-Q SCH (23:03)
[2018-12-28] MEDS: IBUPROFEN 800 MG TAB PO PRN (01:08)
[2018-12-28] MEDS ORDERED: INSULIN GLARGINE 100 UNITS/ML SUB-Q SCH (08:00)
[2018-12-28] MEDS: INSULIN LISPRO 100 UNIT/ML SUB-Q SCH ×4 (08:15→17:47)
--- NOTE | 2018-12-28 08:22 | Progress Note ---
Assessment and Plan A/P: POD 5 s/p repeat section at 35 weeks Febrile morbidity: Chest Xray, Urine culture, monitor fever curve. If febrile again, consider antibiotics Poorly controlled DM- Medicine comanaging, variable Poor pain control- wean IV meds Continue routine postoperative care Subjective - Subjective Date of service: 12/28/18 Principal diagnosis: Elevated blood glucose, s/p repeat at 35 wks , DM Interval history: Pt was febrile overnight to 101.5. She denies chills or fever and is anxious to go home though she continues to request IV pain medication. SHe has passed flatus and had a bowel movement. Patient reports: appetite normal, voiding normally, flatus, bowel movement, pain poorly controlled, no ambulating normally (minimally, still using wheelchair ) : in NICU Objective - Vital Signs Latest vital signs: Vital Signs Temp Pulse Resp BP Pulse Ox 12/28/18 02:25 99 F 12/28/18 01:00 100.1 F H 12/28/18 00:18 101.5 F H 113 H 20 140/81 98 12/27/18 16:51 104 H 18 126/69 94 12/27/18 09:55 98 F 106 H 18 118/73 98 Intake and Output 12/27/18 12/28/18 12/28/18 22:59 06:59 14:59 Intake Total 720 240 Balance 720 240 Intake: Oral 240 Intake, Free Water 720 Other: Total, Intake Amount 120 # Voids Void 1 1 - Exam Breasts: Present: deferred Cardiovascular: Present: Regular rate Lungs: Present: Clear to auscultation Abdomen: Present: soft, normal bowel sounds Uterus: Present: fundal height below umbilicus Extremities: Present: normal Incision: Present: intact - Labs Labs: Abnormal lab results 12/27/18 12/27/18 12/27/18 Range/Units 10:04 11:20 16:14 WBC (4.5-11.0) K/mm3 MCH (28-32) pg Plt Count (140-440) K/mm3 Lymph % (Auto) (13.4-35.0) % [place] % (Auto) (0.0-7.3) % [place] # (0.0-0.8) K/mm3 Seg Neutrophils % (40.0-70.0) % Seg Neutrophils # (1.8-7.7) K/mm3 Sodium (137-145) mmol/L Creatinine (0.7-1.2) mg/dL Glucose (65-100) mg/dL POC Glucose 59 L 173 H 56 L (70-105) Phosphorus (2.5-4.5) mg/dL Total Protein (6.3-8.2) g/dL Albumin (3.9-5) g/dL 12/27/18 12/27/18 12/27/18 Range/Units 17:04 20:34 20:34 WBC 15.8 H (4.5-11.0) K/mm3 MCH 27 L (28-32) pg Plt Count 452 H (140-440) K/mm3 Lymph % (Auto) 10.6 L (13.4-35.0) % [place] % (Auto) 8.7 H (0.0-7.3) % [place] # 1.4 H (0.0-0.8) K/mm3 Seg Neutrophils % 79.7 H (40.0-70.0) % Seg Neutrophils # 12.6 H (1.8-7.7) K/mm3 Sodium 134 L (137-145) mmol/L Creatinine 0.5 L (0.7-1.2) mg/dL Glucose 198 H (65-100) mg/dL POC Glucose 156 H (70-105) Phosphorus 4.90 H (2.5-4.5) mg/dL Total Protein 5.8 L (6.3-8.2) g/dL Albumin 2.9 L (3.9-5) g/dL 12/27/18 Range/Units 23:08 WBC (4.5-11.0) K/mm3 MCH (28-32) pg Plt Count (140-440) K/mm3 Lymph % (Auto) (13.4-35.0) % [place] % (Auto) (0.0-7.3) % [place] # (0.0-0.8) K/mm3 Seg Neutrophils % (40.0-70.0) % Seg Neutrophils # (1.8-7.7) K/mm3 Sodium (137-145) mmol/L Creatinine (0.7-1.2) mg/dL Glucose (65-100) mg/dL POC Glucose 145 H (70-105) Phosphorus (2.5-4.5) mg/dL Total Protein (6.3-8.2) g/dL Albumin (3.9-5) g/dL
--- NOTE | 2018-12-28 08:29 | XRay Report ---
CHEST 2 VIEWS INDICATION / CLINICAL INFORMATION: febrile. COMPARISON: None available. FINDINGS: SUPPORT DEVICES: None. HEART / MEDIASTINUM: No significant abnormality. LUNGS / PLEURA: No significant pulmonary or pleural abnormality. No pneumothorax. ADDITIONAL FINDINGS: No significant additional findings. IMPRESSION: 1. No acute findings. Signer Name: Antonio Lucio MD Signed: 12/28/2018 8:25 AM Workstation Name: [id number]
[2018-12-28] MEDS: KETOROLAC 30 MG/1 ML INJ IV PRN (08:58)
--- NOTE | 2018-12-28 10:02 | Progress Note ---
Assessment and Plan Assessment and plan: 28F with DM Hospitalist group was asked to manage blood glucose levels. Patient's blood glucose levels was being managed by perinatology group in L and D , but has now delivered a baby and is now in mother/baby cont lantus at at decreased dose, cont bolus insulin and SSI Hemoglobin A1c is high at 12.5 and patient is noncompliant Preventative health counseling performed for 17 minutes DM gastroparesis improving, advised to eat smaller meals Diagnosis Diabetes, insulin-dependent, poorly controlled Nonadherence to medications, dvt ppx per primary team History Interval history: Review of systems Constitutional: No fevers, no malaise, no joint pains CVS: No chest pain, no orthopnea, no pedal edema GI: No abdominal pain, no diarrhea, no vomiting, no constipation Respiratory: , no wheezing, no coughing Hospitalist Physical - Physical exam Narrative exam: General.: Appears well, no distress, nontoxic HEENT: Moist mucous membranes, extraocular muscles intact, no lymphadenopathy Neck: supple Cardiac: S1-S2 heard Lungs: clear to auscultation bilaterally Abdomen: soft , nontender, nondistended, bowel sounds positive Extremities: no edema clubbing or cyanosis Skin: no rash or lesions Neurologic: no gross focal deficits Psych: calm, and cooperative - Constitutional Vitals: Temp Pulse Resp BP Pulse Ox 98 F 97 H 20 130/82 98 12/28/18 08:55 12/28/18 08:55 12/28/18 08:58 12/28/18 08:55 12/28/18 00:18 Results - Labs CBC & Chem 7: 12/27/18 20:34 12/27/18 20:34 Labs: Laboratory Last Values WBC 15.8 K/mm3 (4.5-11.0) H 12/27/18 20:34 RBC 3.71 M/mm3 (3.65-5.03) 12/27/18 20:34 Hgb 10.1 gm/dl (10.1-14.3) 12/27/18 20:34 Hct 30.6 % (30.3-42.9) 12/27/18 20:34 MCV 82 fl (79-97) 12/27/18 20:34 MCH 27 pg (28-32) L 12/27/18 20:34 MCHC 33 % (30-34) 12/27/18 20:34 RDW 14.3 % (13.2-15.2) 12/27/18 20:34 Plt Count 452 K/mm3 (140-440) H 12/27/18 20:34 Lymph % (Auto) 10.6 % (13.4-35.0) L 12/27/18 20:34 [place] % (Auto) 8.7 % (0.0-7.3) H 12/27/18 20:34 Eos % (Auto) 0.6 % (0.0-4.3) 12/27/18 20:34 Baso % (Auto) 0.4 % (0.0-1.8) 12/27/18 20:34 Lymph # 1.7 K/mm3 (1.2-5.4) 12/27/18 20:34 [place] # 1.4 K/mm3 (0.0-0.8) H 12/27/18 20:34 Eos # 0.1 K/mm3 (0.0-0.4) 12/27/18 20:34 Baso # 0.1 K/mm3 (0.0-0.1) 12/27/18 20:34 Seg Neutrophils % 79.7 % (40.0-70.0) H 12/27/18 20:34 Seg Neutrophils # 12.6 K/mm3 (1.8-7.7) H 12/27/18 20:34 POC ABG pH 7.356 (7.35-7.45) 12/18/18 06:37 POC ABG pCO2 24.8 (35-45) L 12/18/18 06:37 POC ABG pO2 103 (80-105) 12/18/18 06:37 POC ABG HCO3 13.9 (22-26 mml/L) 12/18/18 06:37 POC ABG Total CO2 15 (23-27mmol/L) 12/18/18 06:37 POC ABG O2 Sat 98 12/18/18 06:37 POC ABG Base Excess -12 ((-2) - (+3)mmol/L) 12/18/18 06:37 FiO2 21 % 12/18/18 06:37 Sodium 134 mmol/L (137-145) L 12/27/18 20:34 Potassium 4.8 mmol/L (3.6-5.0) 12/27/18 20:34 Chloride 99.1 mmol/L (98-107) 12/27/18 20:34 Carbon Dioxide 23 mmol/L (22-30) 12/27/18 20:34 Anion Gap 17 mmol/L 12/27/18 20:34 BUN 12 mg/dL (7-17) 12/27/18 20:34 Creatinine 0.5 mg/dL (0.7-1.2) L 12/27/18 20:34 Estimated GFR > 60 ml/min 12/27/18 20:34 BUN/Creatinine Ratio 24 % 12/27/18 20:34 Glucose 198 mg/dL (65-100) H 12/27/18 20:34 POC Glucose 145 (70-105) H 12/27/18 23:08 Hemoglobin A1c 12.5 % (4-6) H 12/16/18 22:02 Ketones Quantitative Negative (Negative) 12/18/18 00:28 Lactic Acid 1.00 mmol/L (0.7-2.0) 12/27/18 20:34 Calcium 8.8 mg/dL (8.4-10.2) 12/27/18 20:34 Phosphorus 4.90 mg/dL (2.5-4.5) H 12/27/18 20:34 Magnesium 1.70 mg/dL (1.7-2.3) 12/27/18 20:34 Total Bilirubin 0.20 mg/dL (0.1-1.2) 12/27/18 20:34 AST 13 units/L (5-40) 12/27/18 20:34 ALT 10 units/L (7-56) 12/27/18 20:34 Alkaline Phosphatase 92 units/L (35-129) 12/27/18 20:34 Total Protein 5.8 g/dL (6.3-8.2) L 12/27/18 20:34 Albumin 2.9 g/dL (3.9-5) L 12/27/18 20:34 Albumin/Globulin Ratio 1.0 % 12/27/18 20:34 Lipase 42 units/L (13-60) 12/27/18 20:34 Urine Total Volume 1300 ml 12/17/18 20:30 Ur Total Protein 24 Hr 260.00 mg/dL (2-200) H 12/17/18 20:30 Urine Total Protein 20 mg/dL (5-11.8) H 12/17/18 20:30 Urine Opiates Screen Presumptive negative 12/18/18 05:10 Urine Methadone Screen Presumptive negative 12/18/18 05:10 Ur Barbiturates Screen Presumptive negative 12/18/18 05:10 Ur Phencyclidine Scrn Presumptive negative 12/18/18 05:10 Ur Amphetamines Screen Presumptive negative 12/18/18 05:10 U Benzodiazepines Scrn Presumptive negative 12/18/18 05:10 Urine Cocaine Screen Presumptive negative 12/18/18 05:10 U Marijuana (THC) Screen Presumptive negative 12/18/18 05:10 Drugs of Abuse Note Disclamer 12/18/18 05:10 Syphilis IgG Antibody Non-reactive (NonReactive) 12/22/18 20:15 Blood Type O POSITIVE 12/22/18 20:05 Antibody Screen Negative 12/22/18 20:05 Active Medications - Current Medications Current Medications: Generic Name Dose Route Start Last Admin Trade Name Tulioq PRN Reason Stop Dose Admin Acetaminophen 650 mg 12/16/18 21:18 12/17/18 05:15 Tylenol PO 650 mg Q4H PRN Administration Pain MILD(1-3)/Fever >100.5/[place] Diphenhydramine HCl 50 mg 12/23/18 22:44 12/27/18 23:15 Benadryl PO 50 mg Q6H PRN Administration Itching Hydromorphone HCl 2 mg 12/24/18 19:38 12/27/18 17:21 Dilaudid PO 2 mg Q6H PRN Administration Pain , Severe (7-10) Sodium Chloride 1,000 mls @ 75 mls/hr 12/16/18 23:00 12/16/18 23:04 Nacl 0.9% 1000 Ml IV 75 mls/hr DIRECT BRE Administration Oxytocin/Sodium Chloride 20 units in 1,000 mls @ 0 mls/hr 12/23/18 08:00 Pitocin/Ns 20 Unit/1000ml Drip IV TITR BRE As Directed Oxytocin/Sodium Chloride 20 units in 1,000 mls @ 250 mls/hr 12/23/18 11:26 Pitocin/Ns 20 Unit/1000ml Drip IV DIRECT BRE Ibuprofen 800 mg 12/23/18 11:12/28/18 01:08 Ibuprofen PO 800 mg Q6H PRN Administration Pain, Mild (1-3) Insulin Glargine 60 units 12/27/18 22:00 12/27/18 23:03 Lantus SUB-Q 60 units QHS [facility] Administration Insulin Glargine 60 units 12/28/18 08:00 Lantus SUB-Q QAMDIAB [facility] Insulin Human Lispro 0 unit 12/25/18 22:00 12/28/18 08:46 Humalog SUB-Q 1 unit ACHS [facility] Administration Protocol Insulin Human Lispro 14 unit 12/27/18 17:44 Humalog SUB-Q AC [facility] Ketorolac Tromethamine 30 mg 12/23/18 11:26 12/28/18 08:58 Toradol IV 12/28/18 11:25 30 mg Q6H PRN Administration Pain, Moderate (4-6) Morphine Sulfate 2 mg 12/23/18 11:26 12/26/18 17:21 Morphine IV 2 mg Q4H PRN Administration Pain, Moderate (4-6) Multi-Ingredient Ointment 1 applic 12/23/18 11:26 Lansinoh TP PRN PRN dryness/cracking Multivitamins/Iron/Calcium 1 each 12/17/18 10:00 12/27/18 18:45 Vitamin PO Not Given QDAY [facility] Naloxone HCl 0.1 mg 12/23/18 11:26 Naloxone IV Q2MIN PRN Res Rate </= 8 or 02 SAT < 92% Ondansetron HCl 4 mg 12/23/18 07:30 Zofran IV Q8H PRN Nausea And Vomiting Oxycodone/Acetaminophen 2 tab 12/23/18 11:26 12/27/18 23:10 Percocet 5/325 PO 2 tab Q4H PRN Administration Pain, Moderate (4-6) Witch Suyapa/Glycerin 1 each 12/23/18 11:26 Tucks Pad TP PRN PRN Hemorrhoids/cleansing/soothing Nutrition/Malnutrition Assess - Dietary Evaluation Nutrition/Malnutrition Findings: Nutrition Notes Start: 12/17/18 09:47 Freq: Status: Active Protocol: Document 12/18/18 13:22 RM (Rec: 12/18/18 13:29 RM [id number]) Nutrition Notes Initial or Follow up Reassessment Current Diagnosis Diabetes Other Pertinent Diagnosis 34.5 wk Gestation Current Diet GDM diet Labs/Tests Reviewed Pertinent Medications Reviewed Height 5 ft 5 in Weight 100.344 kg [place] Body Weight (kg) 56.81 BMI 36.8 Subjective/Other Information Diet advanced to GDM. Pt stated that her appetite is good and that she ate all of her dinner last night and breakfast this morning. Pt stated that she is familiar with DM diet education and has no further questions related to it. Percent of energy/protein needs met: 93%/82% Burn Absent Trauma Absent Minimum of two criteria No #1 Nutrition Diagnosis Limited adherence to nutrition -related recommendations As Evidenced by Signs and Symptoms pt statement that she is familiar with DM diet education and has no further questions related to it Diagnosis Progress(for reassessment Resolved documentation) Is patient on ventilator? No Is Patient Ambulatory and/or Out of Bed Yes REE-([place] Jeor-ambulatory/OOB) [ 2254.616 NUTR.MSJOOB] Calculation Used for Recommendations [place] Je[facility] Additional Notes PRO needs: 110g (1.1 g/kg) Fluid needs: 35-40ml/kg previd wt Nutrition Intervention Change Diet Order: Continue current Anticipated Discharge Needs: Consistent CHO Revisit per MD consult or patient Sign Off request:
[2018-12-28] MEDS: oxyCODONE /ACETAMINOPHEN 5-325MG TAB PO PRN ×2 (13:18→19:01)
[2018-12-28] MEDS: INSULIN GLARGINE 100 UNITS/ML SUB-Q SCH (23:15)
[2018-12-29] MEDS: oxyCODONE /ACETAMINOPHEN 5-325MG TAB PO PRN ×2 (02:05→08:20)
[2018-12-29] MEDS: diphenhydrAMINE 50 MG CAP PO PRN (02:05)
[2018-12-29 02:23] LABS: Bacteria,Urine 1+ /HPF (Negative); Bilirubin,Urine NEG (Negative); Blood,Urine LG (Negative); Color,Urine Yellow (Yellow); Urobilinogen,Urine < 2.0 mg/dL (<2.0)
[2018-12-29 02:32] LABS: RBC,Urine > 182.0 /HPF (0.0-6.0); WBC,Urine > 182.0 /HPF (0.0-6.0)
[2018-12-29 08:50] VITALS: BP 131/83
[2018-12-29] MEDS: INSULIN LISPRO 100 UNIT/ML SUB-Q SCH (10:38)
--- NOTE | 2018-12-29 10:55 | Progress Note ---
Assessment and Plan Assessment and plan: Patient is a 28F with IDDM. Patient's blood glucose levels was being managed by perinatology group in L and D unit , but has patient has delivered the baby and is now on the mother/baby unit and Hospitalist group was asked to manage blood glucose levels. IDDM Hemoglobin A1c is high at 12.5 and patient is noncompliant Preventative health counseling performed for 17 minutes DM gastroparesis improving, advised to eat smaller meals Hypoglycemia episodes, resolved Lantus bid dosing stopped dvt ppx per primary team Hospitalist will sign off, if patient goes home then resume her home regimen of Levemir 60mg q12h and SSI, stop Lantus bid dosing. History Interval history: Patient was seen and examined. Follow-up on DM. No overnight events reported to me. Patient denies any chest pain, shortness breath, nausea/vomiting or severe headaches. Imaging, nursing note, chart, labs and old chart reviewed. Discussed with patient. Hospitalist Physical - Physical exam Narrative exam: Gen: WDWN, NAD, Awake, Alert, Orientated HEENT: NCAT, EOMI, PERRL, OP Clear Neck: supple, no adenopathy, no thyromegaly, no JVD CVS/Heart: RRR, normal S1S2, pulses present bilaterally Chest/Lungs: CTA B, Symmetrical chest expansion, good air entry bilaterally GI/Abdomen: soft, binder over stomach, NTND, good bowel sounds, no guarding or rebound /Bladder: no suprapubic tenderness, no CVA or paraspinal tenderness Extermity/Skin: no c/c/e, no obvious rash MSK: FROM x 4 Neuro: CN 2-12 grossly intact, no new focal deficits Psych: calm - Constitutional Vitals: Temp Pulse Resp BP Pulse Ox 99.6 F 104 H 20 131/83 98 12/29/18 08:07 12/29/18 08:07 12/29/18 08:20 12/29/18 08:07 12/29/18 08:07 Results - Labs CBC & Chem 7: 12/27/18 20:34 12/27/18 20:34 Labs: Laboratory Last Values WBC 15.8 K/mm3 (4.5-11.0) H 12/27/18 20:34 RBC 3.71 M/mm3 (3.65-5.03) 12/27/18 20:34 Hgb 10.1 gm/dl (10.1-14.3) 12/27/18 20:34 Hct 30.6 % (30.3-42.9) 12/27/18 20:34 MCV 82 fl (79-97) 12/27/18 20:34 MCH 27 pg (28-32) L 12/27/18 20:34 MCHC 33 % (30-34) 12/27/18 20:34 RDW 14.3 % (13.2-15.2) 12/27/18 20:34 Plt Count 452 K/mm3 (140-440) H 12/27/18 20:34 Lymph % (Auto) 10.6 % (13.4-35.0) L 12/27/18 20:34 [place] % (Auto) 8.7 % (0.0-7.3) H 12/27/18 20:34 Eos % (Auto) 0.6 % (0.0-4.3) 12/27/18 20:34 Baso % (Auto) 0.4 % (0.0-1.8) 12/27/18 20:34 Lymph # 1.7 K/mm3 (1.2-5.4) 12/27/18 20:34 [place] # 1.4 K/mm3 (0.0-0.8) H 12/27/18 20:34 Eos # 0.1 K/mm3 (0.0-0.4) 12/27/18 20:34 Baso # 0.1 K/mm3 (0.0-0.1) 12/27/18 20:34 Seg Neutrophils % 79.7 % (40.0-70.0) H 12/27/18 20:34 Seg Neutrophils # 12.6 K/mm3 (1.8-7.7) H 12/27/18 20:34 POC ABG pH 7.356 (7.35-7.45) 12/18/18 06:37 POC ABG pCO2 24.8 (35-45) L 12/18/18 06:37 POC ABG pO2 103 (80-105) 12/18/18 06:37 POC ABG HCO3 13.9 (22-26 mml/L) 12/18/18 06:37 POC ABG Total CO2 15 (23-27mmol/L) 12/18/18 06:37 POC ABG O2 Sat 98 12/18/18 06:37 POC ABG Base Excess -12 ((-2) - (+3)mmol/L) 12/18/18 06:37 FiO2 21 % 12/18/18 06:37 Sodium 134 mmol/L (137-145) L 12/27/18 20:34 Potassium 4.8 mmol/L (3.6-5.0) 12/27/18 20:34 Chloride 99.1 mmol/L (98-107) 12/27/18 20:34 Carbon Dioxide 23 mmol/L (22-30) 12/27/18 20:34 Anion Gap 17 mmol/L 12/27/18 20:34 BUN 12 mg/dL (7-17) 12/27/18 20:34 Creatinine 0.5 mg/dL (0.7-1.2) L 12/27/18 20:34 Estimated GFR > 60 ml/min 12/27/18 20:34 BUN/Creatinine Ratio 24 % 12/27/18 20:34 Glucose 198 mg/dL (65-100) H 12/27/18 20:34 POC Glucose 121 (70-105) H 12/28/18 23:15 Hemoglobin A1c 12.5 % (4-6) H 12/16/18 22:02 Ketones Quantitative Negative (Negative) 12/18/18 00:28 Lactic Acid 1.00 mmol/L (0.7-2.0) 12/27/18 20:34 Calcium 8.8 mg/dL (8.4-10.2) 12/27/18 20:34 Phosphorus 4.90 mg/dL (2.5-4.5) H 12/27/18 20:34 Magnesium 1.70 mg/dL (1.7-2.3) 12/27/18 20:34 Total Bilirubin 0.20 mg/dL (0.1-1.2) 12/27/18 20:34 AST 13 units/L (5-40) 12/27/18 20:34 ALT 10 units/L (7-56) 12/27/18 20:34 Alkaline Phosphatase 92 units/L (35-129) 12/27/18 20:34 Total Protein 5.8 g/dL (6.3-8.2) L 12/27/18 20:34 Albumin 2.9 g/dL (3.9-5) L 12/27/18 20:34 Albumin/Globulin Ratio 1.0 % 12/27/18 20:34 Lipase 42 units/L (13-60) 12/27/18 20:34 Urine Color Yellow (Yellow) 12/29/18 01:50 Urine Turbidity Slightly-cloudy (Clear) 12/29/18 01:50 Urine pH 6.0 (5.0-7.0) 12/29/18 01:50 Ur Specific [place] 1.013 (1.003-1.030) 12/29/18 01:50 Urine Protein 30 mg/dl mg/dL (Negative) 12/29/18 01:50 Urine Glucose (UA) 50 mg/dL (Negative) 12/29/18 01:50 Urine Ketones Neg mg/dL (Negative) 12/29/18 01:50 Urine Blood Lg (Negative) 12/29/18 01:50 Urine Nitrite Neg (Negative) 12/29/18 01:50 Urine Bilirubin Neg (Negative) 12/29/18 01:50 Urine Urobilinogen < 2.0 mg/dL (<2.0) 12/29/18 01:50 Ur Leukocyte Esterase Lg (Negative) 12/29/18 01:50 Urine WBC (Auto) > 182.0 /HPF (0.0-6.0) H 12/29/18 01:50 Urine RBC (Auto) > 182.0 /HPF (0.0-6.0) 12/29/18 01:50 U Epithel Cells (Auto) 3.0 /HPF (0-13.0) 12/29/18 01:50 Urine Bacteria (Auto) 1+ /HPF (Negative) 12/29/18 01:50 Urine Yeast ([place]) 2+ /HPF 12/29/18 01:50 Urine Total Volume 1300 ml 12/17/18 20:30 Ur Total Protein 24 Hr 260.00 mg/dL (2-200) H 12/17/18 20:30 Urine Total Protein 20 mg/dL (5-11.8) H 12/17/18 20:30 Urine Opiates Screen Presumptive negative 12/18/18 05:10 Urine Methadone Screen Presumptive negative 12/18/18 05:10 Ur Barbiturates Screen Presumptive negative 12/18/18 05:10 Ur Phencyclidine Scrn Presumptive negative 12/18/18 05:10 Ur Amphetamines Screen Presumptive negative 12/18/18 05:10 U Benzodiazepines Scrn Presumptive negative 12/18/18 05:10 Urine Cocaine Screen Presumptive negative 12/18/18 05:10 U Marijuana (THC) Screen Presumptive negative 12/18/18 05:10 Drugs of Abuse Note Disclamer 12/18/18 05:10 Syphilis IgG Antibody Non-reactive (NonReactive) 12/22/18 20:15 Blood Type O POSITIVE 12/22/18 20:05 Antibody Screen Negative 12/22/18 20:05 Active Medications - Current Medications Current Medications: Generic Name Dose Route Start Last Admin Trade Name Freq PRN Reason Stop Dose Admin Acetaminophen 650 mg 12/16/18 21:18 12/17/18 05:15 Tylenol PO 650 mg Q4H PRN Administration Pain MILD(1-3)/Fever >100.5/[place] Diphenhydramine HCl 50 mg 12/23/18 22:44 12/29/18 02:05 Benadryl PO 50 mg Q6H PRN Administration Itching Hydromorphone HCl 2 mg 12/24/18 19:38 12/27/18 17:21 Dilaudid PO 2 mg Q6H PRN Administration Pain , Severe (7-10) Sodium Chloride 1,000 mls @ 75 mls/hr 12/16/18 23:00 12/16/18 23:04 Nacl 0.9% 1000 Ml IV 75 mls/hr DIRECT BRE Administration Oxytocin/Sodium Chloride 20 units in 1,000 mls @ 0 mls/hr 12/23/18 08:00 Pitocin/Ns 20 Unit/1000ml Drip IV TITR BRE As Directed Oxytocin/Sodium Chloride 20 units in 1,000 mls @ 250 mls/hr 12/23/18 11:26 Pitocin/Ns 20 Unit/1000ml Drip IV DIRECT BRE Ibuprofen 800 mg 12/23/18 11:26 12/28/18 01:08 Ibuprofen PO 800 mg Q6H PRN Administration Pain, Mild (1-3) Insulin Glargine 60 units 12/27/18 22:00 12/28/18 23:15 Lantus SUB-Q 60 units QHS BRE Administration Insulin Human Lispro 0 unit 12/25/18 22:00 12/26/18 22:56 Humalog SUB-Q 3 unit ACHS BRE Administration Protocol Insulin Human Lispro 14 unit 12/27/18 17:44 12/29/18 10:38 Humalog SUB-Q 14 unit AC BRE Administration Morphine Sulfate 2 mg 12/23/18 11:26 12/26/18 17:21 Morphine IV 2 mg Q4H PRN Administration Pain, Moderate (4-6) Multi-Ingredient Ointment 1 applic 12/23/18 11:26 Lansinoh TP PRN PRN dryness/cracking Multivitamins/Iron/Calcium 1 each 12/17/18 10:00 12/27/18 18:45 Vitamin PO Not Given QDAY [facility] Naloxone HCl 0.1 mg 12/23/18 11:26 Naloxone IV Q2MIN PRN Res Rate </= 8 or 02 SAT < 92% Ondansetron HCl 4 mg 12/23/18 07:30 Zofran IV Q8H PRN Nausea And Vomiting Oxycodone/Acetaminophen 2 tab 12/23/18 11:26 12/29/18 08:20 Percocet 5/325 PO 2 tab Q4H PRN Administration Pain, Moderate (4-6) Witch Suyapa/Glycerin 1 each 12/23/18 11:26 Tucks Pad TP PRN PRN Hemorrhoids/cleansing/soothing Nutrition/Malnutrition Assess - Dietary Evaluation Nutrition/Malnutrition Findings: Nutrition Notes Start: 12/17/18 09:47 Freq: Status: Active Protocol: Document 12/18/18 13:22 RM (Rec: 12/18/18 13:29 RM [id number]) Nutrition Notes Initial or Follow up Reassessment Current Diagnosis Diabetes Other Pertinent Diagnosis 34.5 wk Gestation Current Diet GDM diet Labs/Tests Reviewed Pertinent Medications Reviewed Height 5 ft 5 in Weight 100.344 kg [place] Body Weight (kg) 56.81 BMI 36.8 Subjective/Other Information Diet advanced to GDM. Pt stated that her appetite is good and that she ate all of her dinner last night and breakfast this morning. Pt stated that she is familiar with DM diet education and has no further questions related to it. Percent of energy/protein needs met: 93%/82% Burn Absent Trauma Absent Minimum of two criteria No #1 Nutrition Diagnosis Limited adherence to nutrition -related recommendations As Evidenced by Signs and Symptoms pt statement that she is familiar with DM diet education and has no further questions related to it Diagnosis Progress(for reassessment Resolved documentation) Is patient on ventilator? No Is Patient Ambulatory and/or Out of Bed Yes REE-([facility]-ambulatory/OOB) [ 2254.616 NUTR.MSJOOB] Calculation Used for Recommendations [facility] Additional Notes PRO needs: 110g (1.1 g/kg) Fluid needs: 35-40ml/kg previd wt Nutrition Intervention Change Diet Order: Continue current Anticipated Discharge Needs: Consistent CHO Revisit per MD consult or patient Sign Off request:
--- NOTE | 2018-12-29 21:25 | Discharge Summary ---
Providers - Providers Date of Admission: 12/16/18 21:19 Date of discharge: 12/29/18 Attending physician: STONEY HUSSEIN 12/16/18 21:18 Consult to Physician [CONS] Routine Comment: Consulting Provider: TAE PALMA Physician Instructions: DR PALMA NOTIFIED 12/17/18 WILL SEE IN AM @MECHELLE Reason For Exam: Uncontrolled diabetes 12/16/18 21:19 Consult to Dietitian/Nutrition [CONS] Routine Physician Instructions: Reason For Exam: Reason for Consult: diabetic teaching Primary care physician: STONEY HUSSEIN Hospitalization Reason for admission: section, other (type 1 diabetes, uncontrolled) Delivery: Procedure: repeat low transverse Procedure details: see op report Incision: normal, dry, intact (with nino) complications: none Discharge diagnosis: delivery [place] baby: female Hospital course: Patient was admitted to Antepartum for inpatient management of her uncontrolled blood sugars. She achieved moderate control and the decision was then made to proceed with elective repeat . The patient tolerated procedure well. Patient had an unrmarkable postop course. The hospitalist service was then co nsulted for management of her sugars as she does not have an hammer heater to manage her diabetes as an outpatient. Condition at discharge: Good Disposition: DC-01 TO HOME OR SELFCARE Plan - Discharge Medications Prescriptions: Docusate Sodium [Colace] 100 mg PO BID PRN #60 capsule PRN Reason: Constipation Ibuprofen [Motrin] 800 mg PO Q8HR PRN #40 tablet PRN Reason: Pain, Moderate (4-6) oxyCODONE /ACETAMINOPHEN [Percocet 5/325] 2 tab PO Q6HR PRN #30 tablet PRN Reason: Pain - Provider Discharge Summary Activity: routine, no sex for 6 weeks, no strenuous exercise Diet: routine Instructions: routine Additional instructions: [] Smoking cessation referral if applicable(refer to patient education folder for contact #) [] Refer to [facility] Booklet Call your doctor immediately for: * Fever > 100.5 * Heavy vaginal bleeding ( >1 pad per hour) * Severe persistent headache * Shortness of breath * Reddened, hot, painful area to leg or breast * Drainage or odor from incision. * Keep incision clean and dry at all times and follow doctor's instructions regarding bathing/showering - Follow up plan Follow up: STONEY HUSSEIN MD [Primary Care Provider] - 7 Days Forms: [facility] Discharge Summary
== END 2018-12-29 13:10 | disposition home or self-care (01) | DRG 765 ==
LOC: TRG 20:12 → LD 20:18 → TRG 21:18 → LD 21:19 → OB 12-23 11:12
PROVIDERS: ADMIT Obstetrics & Gynecology; ATTEND Obstetrics & Gynecology
PROC: 4A033R1 Measurement of Arterial Saturation, Peripheral, Percutaneous Approach (ICD-10-PCS; 2018-12-18)
PROC: 10D00Z1 Extraction of Products of Conception, Low, Open Approach (ICD-10-PCS; principal; 2018-12-23)
PROC: 0UB70ZZ Excision of Bilateral Fallopian Tubes, Open Approach (ICD-10-PCS; 2018-12-23)
DX: O34.211 Maternal care for low transverse scar from previous cesarean delivery (principal); O60.14X0 Preterm labor third trimester with preterm delivery third trimester, not applicable or unspecified; O24.02 Pre-existing type 1 diabetes mellitus, in childbirth; K31.84 Gastroparesis; O99.214 Obesity complicating childbirth; O99.52 Diseases of the respiratory system complicating childbirth; E10.40 Type 1 diabetes mellitus with diabetic neuropathy, unspecified; O99.62 Diseases of the digestive system complicating childbirth; O40.3XX0 Polyhydramnios, third trimester, not applicable or unspecified; E10.43 Type 1 diabetes mellitus with diabetic autonomic (poly)neuropathy; Z37.0 Single live birth; Z79.4 Long term (current) use of insulin; Z83.3 Family history of diabetes mellitus; Z88.1 Allergy status to other antibiotic agents; Z3A.34 34 weeks gestation of pregnancy; Z91.19 Patient's noncompliance with other medical treatment and regimen; Z86.14 Personal history of Methicillin resistant Staphylococcus aureus infection; Z91.14 Patient's other noncompliance with medication regimen; Z30.2 Encounter for sterilization
CPT/HCPCS: 36415; 36600; 71046; 76700; 76816; 76819; 76856; 80048; 80053; 80307; 81001; 82010; 82140; 82803; 82962; 83036; 83690; 83735; 84100; 84156; 85014; 85018; 85025; 86592; 86850; 86900; 86901; 87086; 88302; G0378; J0690; J0702; J1170; J1200; J1580; J1815; J1885; J2270; J2370; J2405; J2590; J3370; J3490; J7030; J7120